=== PATIENT | male | born 1965 | race African-American/Black ===

== ENCOUNTER 2020-03-04 12:17 | Inpatient (IN) | payer OTHER ==
[~2020-03-04] VITALS: Ht 188 cm; Wt 95.3 kg
[~2020-03-04 12:17] MED LIST: LORAZEPAM 1 MG TABLET FOR AGITATION PO PRN
--- NOTE | 2020-03-04 14:40 | NUR ---
LIGHTING FIXTURE INSTALLER NOTE: 54 YEAR OLD MALE PATIENT OF DR. MCDONALD'Chauncey ADMITTED FROM HOME FOR MEDICATION TRIAL STUDY. PT ADMITTED ON A VOLUNTARY STATUS WITH A HISTORY OF SCHIZOPHRENIA. PT DENIES MEDICAL HISTORY BUT IS ON DAILY AMLODIPINE. PT WITH HISTORY OF SCHIZOPHRENIA WITH COMPLIANCE ON RISPERDAL, REMERON AND BENADRY. PT DENIES CURRENT SI/HI/AH/VH. DENIES H/O IN PT PSY TX AND PREV SA. REPORTS RECENT INCREASED DEPRESSION RELATED TO RECENT EVENTS IN THE MEDIA. PT A+OX3, VSS, AFEBRILE. SPEECH CLEAR, PRESSURED, HYPERVERBAL. GOOD SHORT AND RESIDENTIAL MEMORY. DENIES PAIN. SKIN CLEAR AND INTACT. PATIENT ORIENTED TO THE UNIT, PATIENT HANDBOOK ALONG WITH PATIENT RIGHTS AND GUIDE TO PRESCRIPTIONS PROVIDED.
[2020-03-04] MEDS ORDERED: ACETAMINOPHEN ES 500 MG TABLET PO PRN (15:00)
[2020-03-04] MEDS ORDERED: IBUPROFEN 200 MG TABLET PO PRN (15:00)
[2020-03-04] MEDS ORDERED: MAG HYDROX/AL HYDROX/SIMETH 30 ML UDC PO PRN (15:00)
[2020-03-04] MEDS ORDERED: LORAZEPAM 1 MG TABLET FOR AGITATION PO PRN (15:00)
[2020-03-04] MEDS ORDERED: MAGNESIUM HYDROXIDE 30 ML UDC PO PRN (15:00)
[2020-03-04] MEDS ORDERED: BENZTROPINE MESYLATE (1 MG) 1 MG TABLET PO PRN (15:30)
[2020-03-04] MEDS ORDERED: ZOLPIDEM TARTRATE 10 MG TABLET PO PRN (15:30)
[2020-03-04] MEDS ORDERED: MISCELLANEOUS MED 1 EA EA PO SCH (15:30)
[2020-03-04] MEDS ORDERED: LORAZEPAM 1 MG TABLET PO PRN (15:30)
[2020-03-04 15:51] VITALS: BP 158/77
[2020-03-04 16:00] VITALS: BP 158/77
[2020-03-04] MEDS ORDERED: RISP1TAB7 PO (16:10)
[2020-03-04] MEDS ORDERED: DIPH50CA37 PO (16:10)
[2020-03-04] MEDS ORDERED: MIRT15TA PO (16:10)
[2020-03-04 20:03] VITALS: BP 148/84
[2020-03-04] MEDS: RISPERDAL 0.5 MG PO SCH (22:07)
[2020-03-05] MEDS: AMLODIPINE 5 MG PO SCH (08:11)
--- NOTE | 2020-03-05 09:16 | NUR ---
RN-CO:PT IS A CLINICAL TRIAL PATIENT. NOTED HE IS QUITE DEMANDING AND ENTITLED. EASILY IRRITATED BUT HE DENIED FEELING OF DEPRESSION AND HALLUCINATIONS. HIS SPEECH IS PRESSURED TOO.
[2020-03-05 09:22] VITALS: BP 108/71
[2020-03-05 16:00] VITALS: BP 152/92
[2020-03-05 20:23] VITALS: BP 159/83
[2020-03-05] MEDS: RISPERDAL 0.5 MG PO SCH (21:10)
[2020-03-06 08:00] VITALS: BP 155/73
[2020-03-06] MEDS: AMLODIPINE 5 MG PO SCH (08:44)
[2020-03-06 16:00] VITALS: BP 127/59
--- NOTE | 2020-03-06 17:55 | NUR ---
PT WAS PLEASANT AND COMPLIANT WITH MEDS MOST OF THE SHIFT.SMOKES OFTEN. C/O NOT MAKING BM FOR 4 DAYS.PT DRANK 6 CUPS OF PRUNE JUICE AND 2 CUPS OF WARM TEA. HESITANT TO TAKE MILK OF MAGNESIA PRN AND TOOK MAALOX INSTEAD. ENCOURAGED TO AMBULATE OFTEN AND INCREASE INTAKE OF FLUIDS. WILL MONITOR PT. PT AMBULATES ALONG THE HALLWAY OFTEN AND GOES OUT TO SMOKE WELL. PT SLEEPING AT THIS TIME BUT AROUSABLE.
--- NOTE | 2020-03-06 19:30 | NUR ---
GPS RN NOTE, RECEIVED PATIENT AWAKE AND IN BED, PATIENT DENIES PAIN AT THIS TIME. PATIENT BREATHING IS UNLABORED WITH EQUAL RISE AND FALL OF THE CHEST. PATIENT IS ALERT AND ORIENTED X 4 ON ROOM AIR WITH A SPOO2 95%. PATIENT IS COMPLAINT WITH MEDICATION, BRIGHT, POLITE, HYPERVERBAL AT TIMES, NEEDY, AND COOPERATIVE. PATIENT IS DENIES AH AND VH AT THIS TIME. PATIENT DENIES SUICIDE AND HOMICIDAL IDEATIONS AT THIS TIME. PATIENT IS SMOKING OFTEN. PATIENT HAS NO NEEDS AT THIS TIME. PATIENT EDUCATED ON THE USE OF THE CALL ZAVALA. PATIENT BED SIDE RAILS UP X 2 FOR SAFETY. PATIENT BED IS LOCKED AND LOW WILL CONTINUE TO MONITOR AND MAINTAIN SAFETY Q15 MIN WITH THE HELP OF STAFF.
[2020-03-06 20:31] VITALS: BP 128/57
[2020-03-06] MEDS: RISPERDAL 0.5 MG PO SCH (21:44)
[2020-03-06] MEDS: ZOLPIDEM TARTRATE 10 MG TABLET PO PRN (21:49)
--- NOTE | 2020-03-06 21:50 | NUR ---
GPS RN NOTE, PATIENT HAS A COMPLAINT OF NOT BEING ABLE TO SLEEP AND IS REQUESTING AMBIEN AT THIS TIME. PATIENT VITAL SIGNS ARE STABLE. GAVE AMBIEN 10MG PO HS ORDERED. WILL REASSESS FOR INSOMNIA AND I WILL CONTINUE TO MONITOR THIS PATIENT WITH THE HELP OF STAFF.
[2020-03-07 08:00] VITALS: BP 142/73
[2020-03-07] MEDS: AMLODIPINE 5 MG PO SCH (08:33)
[2020-03-07 16:00] VITALS: BP 139/64
[2020-03-07 20:00] VITALS: BP 146/79
[2020-03-07] MEDS: RISPERDAL 0.5 MG PO SCH (21:14)
[2020-03-07 21:45] VITALS: BP 139/72
[2020-03-07] MEDS: ZOLPIDEM TARTRATE 10 MG TABLET PO PRN (22:23)
--- NOTE | 2020-03-07 22:24 | NUR ---
GPS RN NOTE: INSOMNIA PATIENT REQUESTED TO GET SLEEPING MEDICINE FOR SLEEPLESSNESS. PRN AMBIEN 10 MG PO GIVEN ORDERED BY MD. WILL CONTINUE TO MONITOR FOR ANY CHANGES.
[2020-03-08 08:00] VITALS: BP 134/67
[2020-03-08] MEDS: AMLODIPINE 5 MG PO SCH (08:03)
[2020-03-08 16:00] VITALS: BP 117/66
--- NOTE | 2020-03-08 16:45 | NUR ---
RN-CO:Noted he is mumbling and talk fast but not looking at the nurse's eye.
--- NOTE | 2020-03-08 20:15 | NUR ---
GPS-RN NOTE: RECEIVED PATIENT LYING IN BED, A/OX4, IN NO ACUTE DISTRESS NOTED.COOPERATIVE WITH TREATMENT AND MEDS, PT SOCIALIZING WITH ANOTHER PATIENT, STILL FEELS DEPRESSED, NO VERBALIZATION OF THOUGHTS AND FEELINGS. DENIES SI/HI OR AVH AT THIS TIME. ENCOURAGED TO VERBALIZE AT 2-3 COPING SKILLS.SAFETY PRECAUTIONS IMPLEMENTED. WILL CONTINUE TO MONITOR Q15MIN ROUNDS FOR SAFETY AND BEHAVIOR.
[2020-03-08 20:33] VITALS: BP 146/76
[2020-03-08] MEDS: ZOLPIDEM TARTRATE 10 MG TABLET PO PRN (21:52)
--- NOTE | 2020-03-08 21:52 | NUR ---
GPS RN NOTE: INSOMNIA PT. C/O INABILITY TO SLEEP. ADMINISTERED AMBIEN 10MG PO PRN ORDERED. WILL CONTINUE TO MONITOR.
[2020-03-09 08:00] VITALS: BP 147/70
[2020-03-09] MEDS: AMLODIPINE 5 MG PO SCH (09:40)
[2020-03-09 16:00] VITALS: BP 133/69
--- NOTE | 2020-03-09 19:20 | NUR ---
GPS RN NOTE: OPENING RECEIVED PATIENT IN BED AWAKE TALKING ON THE PHONE. PT IS A/OX4, IN NO ACUTE DISTRESS NOTED. BREATHING EVEN AND UNLABORED. NO PAIN AT THIS TIME. PT COOPERATIVE WITH PLAN OF CARE. PT SOCIALIZING WITH ANOTHER PATIENT, PT IS DEPRESSED, RESERVED, GUARDED, ENCOURAGE VERBALIZATION OF THOUGHTS AND FEELINGS. DENIES SI/HI OR AVH AT THIS TIME. .SAFETY PRECAUTIONS IMPLEMENTED. WILL CONTINUE TO MONITOR Q15MIN ROUNDS FOR SAFETY AND BEHAVIOR.
[2020-03-09 20:18] VITALS: BP 151/75
[2020-03-09] MEDS: ZOLPIDEM TARTRATE 10 MG TABLET PO PRN (21:29)
--- NOTE | 2020-03-09 21:31 | NUR ---
GPS RN NOTES: INSOMNIA PT C/O UNABLE TO SLEEP. PT ASKED FOR SLEEPING MEDICATION. NO S/S OF SOB. NO S/S OF RESP DISTRESS. BREATHING EVEN AND UNLABORED. OFFERED AMBIEN 10MG PO PRN ORDERED. PT AGREED AND TOLERATED MEDICATION WELL. CONTINUE TO MONITOR
[2020-03-10 08:00] VITALS: BP 136/57
[2020-03-10] MEDS: AMLODIPINE 5 MG PO SCH ×2 (08:18→08:22)
--- NOTE | 2020-03-10 09:00 | NUR ---
RN NOTE:Patient alert ,verbally responsive ,poor insight ,poor insight ,easily irritable and anxius ,no interaction with peers ,stay in his room ,mood depressed isolative and withdrawn ,will continue to monitor for safety q15 minutes .
[2020-03-10 16:00] VITALS: BP 140/73
[2020-03-10] MEDS: ZOLPIDEM TARTRATE 10 MG TABLET PO PRN (21:11)
[2020-03-11] MEDS: AMLODIPINE 5 MG PO SCH (08:27)
--- NOTE | 2020-03-11 10:01 | NUR ---
RN-CO:PATIENT STATED " I AM BORED, I WANT TO SEE MY FAMILY AND THE PEOPLE WHO TRULY LOVES ME. NOT LIKE HERE SOME PEOPLE DON'T LIKE ME." I TOLD HIM THAT HE CAN VENTILATE HIS FEELINGS TO HIS RN OR TO THE STAFF HE TRUST. HE LOOKS SENTIMENTAL THIS MORNING. REASSUANCE WAS GIVEN TO HIM.
[2020-03-11] MEDS ORDERED: LORAZEPAM 1 MG TABLET FOR AGITATION PO PRN (12:00)
[2020-03-11] MEDS: INVESTIGATIONAL MED RGH-MD-24 1 CAP PO SCH (17:03)
[2020-03-11 20:05] VITALS: BP 144/76
[2020-03-11] MEDS: ZOLPIDEM TARTRATE 10 MG TABLET PO PRN (21:58)
--- NOTE | 2020-03-11 21:58 | NUR ---
GPS RN NOTE: INSOMNIA PT. C/O INABILITY TO SLEEP. ADMINISTERED AMBIEN 10MG PO PRN ORDERED. WILL CONTINUE TO MONITOR.
[2020-03-12 08:00] VITALS: BP 145/71
[2020-03-12] MEDS: AMLODIPINE 5 MG PO SCH (08:13)
[2020-03-12 16:00] VITALS: BP 144/73
[2020-03-12] MEDS: INVESTIGATIONAL MED RGH-MD-24 1 CAP PO SCH (16:54)
[2020-03-12] MEDS: ZOLPIDEM TARTRATE 10 MG TABLET PO PRN (21:16)
--- NOTE | 2020-03-12 22:01 | NUR ---
GPS/OPENING PATIENT WENT OUT TO SMOKE AT 1949. AND IS REQUESTING AMBIEN TO BE TAKEN EARLIER. LOOKS COMFOFTABLE IN BED. STATES HE JUST WANTS TO GO HOME TO HIS FAMILY AND BEGIN TO TRAIN SON AT THE GYM. LOOKS RESTED IN BED ON THE PHONE WITH SOMEONE. NO SIGNS OF DISTRESS/ANXIETY. WILL CONTINUE TO MONITOR.
[2020-03-13 08:00] VITALS: BP 144/69
[2020-03-13] MEDS: AMLODIPINE 5 MG PO SCH (08:22)
--- NOTE | 2020-03-13 09:15 | NUR ---
RN-CO:PATIENT IS CALM AND COOPERATIVE TO CARE. TOOK HIS AM MEDS. FOCUS ON GOING IN AND OUT OF THE UNIT. INTERACTS APPROPRIATELY TO STAFF.
[2020-03-13 16:00] VITALS: BP 144/65
[2020-03-13] MEDS: INVESTIGATIONAL MED RGH-MD-24 1 CAP PO SCH (16:43)
[2020-03-13 20:00] VITALS: BP 139/72
--- NOTE | 2020-03-13 20:00 | NUR ---
GPS/RN OPENING NOTES RECEIVED PATIENT ALERT, ORIENTED, ABLE TO VERBALIZE NEEDS, CLINICAL TRIAL AND REPORTED WOULD LIKE TO TAKE HIS SLEEPING MEDICATION AFTER HE GET BACK FROM SMOKE BREAK. RECEIVED ENDORSEMENT FROM AM RN FOR JAS.
[2020-03-13] MEDS: ZOLPIDEM TARTRATE 10 MG TABLET PO PRN (20:41)
[2020-03-14 08:00] VITALS: BP 144/82
[2020-03-14] MEDS: AMLODIPINE 5 MG PO SCH (08:19)
[2020-03-14 16:00] VITALS: BP 143/65
[2020-03-14] MEDS: INVESTIGATIONAL MED RGH-MD-24 1 CAP PO SCH (16:55)
--- NOTE | 2020-03-14 19:15 | NUR ---
RN opening notes Received Pt from morning nurse. Pt is clinical trial. Pt is laying in bed comfortably. Pt is alert and orientedX4, calm and cooperative. Respiration is normal. No SOB. No S/S of distress noted. Pt denies SI/HI at this time. Reality orientation provided. Pt has no needs at this time. Will continue to monitor Q 15 mins check for safety and behavior.
[2020-03-14 20:00] VITALS: BP 149/76
[2020-03-14 20:56] VITALS: BP 149/76
[2020-03-14] MEDS: ZOLPIDEM TARTRATE 10 MG TABLET PO PRN (21:50)
--- NOTE | 2020-03-14 21:50 | NUR ---
GPS RN notes: Insomnia Pt's complaining unable to sleep and requesting a sleeping meds. Administered Ambien 10 mg/po as ordered for sleeping. Safety precautions is maintained. Will continue to monitor.
[2020-03-15 08:00] VITALS: BP 134/68
[2020-03-15] MEDS: AMLODIPINE 5 MG PO SCH (08:13)
[2020-03-15 16:00] VITALS: BP 142/70
[2020-03-15] MEDS: INVESTIGATIONAL MED RGH-MD-24 1 CAP PO SCH (16:38)
[2020-03-15 20:00] VITALS: BP 145/67
[2020-03-15 20:44] VITALS: BP 145/67
[2020-03-16 08:00] VITALS: BP 150/71
[2020-03-16] MEDS: AMLODIPINE 5 MG PO SCH (09:07)
[2020-03-16 16:00] VITALS: BP 149/77
[2020-03-16] MEDS: INVESTIGATIONAL MED RGH-MD-24 1 CAP PO SCH (16:43)
[2020-03-16 20:22] VITALS: BP 150/71
[2020-03-16] MEDS: ZOLPIDEM TARTRATE 10 MG TABLET PO PRN (20:48)
[2020-03-17 08:00] VITALS: BP 148/85
[2020-03-17] MEDS: AMLODIPINE 5 MG PO SCH (08:57)
[2020-03-17 16:00] VITALS: BP 143/70
[2020-03-17] MEDS: INVESTIGATIONAL MED RGH-MD-24 1 CAP PO SCH ×2 (16:42→17:00)
--- NOTE | 2020-03-17 20:14 | NUR ---
GPS RN NOTES: OPENING Received Pt in the room. Pt is clinical trial. Pt is laying in bed comfortably. Pt is alert and oriented X4, calm and cooperative. Respiration is normal. No SOB. No S/S of resp distress noted. Pt denies SI/HI at this time. Reality orientation provided. Pt has no needs at this time. Safety precautions is maintained. Will continue to monitor Q 15 mins check for safety and behavior.
[2020-03-17 20:18] VITALS: BP 143/67
[2020-03-18 08:00] VITALS: BP 145/68
--- NOTE | 2020-03-18 09:00 | NUR ---
RECEIVED PT AMBULATING IN HALLWAY. NO ACUTE DISTRESS NOTED. PT COMPLIANT WITH MEDICATION ADMINISTRATION AND PLAN OF CARE. PT DENIES CURRENT SI/HI. NO ADVERSE SIDE EFFECTS TO MEDICATIONS NOTED. PT AMBULATORY AND VISIBLE ON THE UNIT. NO DEPRESSION ANXIETY NOTED. PT DENIES AH/VH/TH AT PRESENT TIME. PT STABLE FOR DISHCARGE HOME WITH F/U WITH DR. MCDONALD
[2020-03-18] MEDS: AMLODIPINE 5 MG PO SCH (09:07)
--- NOTE | 2020-03-18 10:10 | NUR ---
ELL TEACHER NOTE: 54 YEAR OLD MALE DISCHARGED HOME IN STABLE CONDITION. COMPLIANT WITH MEDICATIOONS, COOPERATIVE WITH TREATMENT AND DRUG STUDY PLAN. PATIENT DENIES SI/HI AND INSTRUCTED TO GO TO THE CLOSEST ER IF DEVELOPING SI/HI. BEHAVIOR IMPROVED, PSYCHIATRIC AND DRUG STUDY TREATMENT PLANS MED, MEDICATL TREATMENT PLANS DEFERRED FOR CONTINUAL MONITORING. EDUCATED PT ABOUT AFTER CARE PLAN AND COPY PROVIDED. RETURNED PERSONAL BELONGINGS TO PATIENT. MEDICATION RECONCILED WITH DR. MCDONALD. PATIENT SIGNED DISCHARGE PAPER WORK. SKIN CLEAR ON ADMIT AND DISCHARGE. PT LEF THE UNIT AT 1010 VIA AMULATION IN STABLE CONDITION. PATIENT ID BAND REMOVED
== END 2020-03-18 10:15 | disposition home or self-care (01) | DRG 951 ==
LOC: GPS 14:31 → MEDOV2 15:40
PROVIDERS: ADMIT Psychiatry & Neurology Psychiatry; ATTEND Psychiatry & Neurology Psychiatry
DX: Z00.6 Encounter for examination for normal comparison and control in clinical research program (principal); F20.0 Paranoid schizophrenia; F29 Unspecified psychosis not due to a substance or known physiological condition; F41.9 Anxiety disorder, unspecified; F17.210 Nicotine dependence, cigarettes, uncomplicated; G47.00 Insomnia, unspecified; Z81.8 Family history of other mental and behavioral disorders; Z79.899 Other long term (current) drug therapy
CPT/HCPCS: G0378

== ENCOUNTER 2021-05-20 09:54 | Inpatient (IN) | payer OTHER ==
[~2021-05-20] VITALS: Ht 188 cm; Wt 95.3 kg
[~2021-05-20 09:54] MED LIST changes: +DIPH50CA37 PO; -LORAZEPAM 1 MG TABLET FOR AGITATION PO PRN; +MIRT-121 PO; +RISP1TAB7 PO
[2021-05-20] MEDS ORDERED: LORAZEPAM 1 MG TABLET FOR AGITATION/ANXIETY PO PRN (14:30)
[2021-05-20] MEDS ORDERED: ACETAMINOPHEN ES 500 MG TABLET PO PRN (14:30)
[2021-05-20] MEDS ORDERED: IBUPROFEN 200 MG TABLET PO PRN (14:30)
--- NOTE | 2021-05-20 14:40 | NUR ---
GPS RN NOTE RECEIVED PATIENT FROM DR MCDONALD'S OFFICE A/O X 4, ABLE TO MAKE NEEDS KNOWN. A CLINICAL TRIAL PATIENT, UNDER CARE OF DR. MCDONALD, MARY [place]. DENIES PAIN. DENIES SI/HI. DENIES ANXIETY OR ANY OTHER BEHAVIOR PROBLEM AT THIS TIME. TOLERATING ROOM AIR WELL WITH NO SOB. DENIES PAIN OR DISCOMFORT AT THIS TIME. AMBULATORY/STEADY. NO IV ACCESS. ORIENTED PATIENT TO THE UNIT & STAFF. SAFETY MEASURES IN PLACE. BED IN LOWEST LOCKED POSITION. SIDE RAILS UPX2, WILL CONTINUE TO MONITOR PATIENT Q 15. Addendum: 05/20/21 at 1648 by FELICIA STOKES RN PT STATES HAVING AUDITORY HALLUCINATIONS THOUGH NOT AT PRESENT. PATIENT CAME FROM DR MCDONALD'S OFFICE WITH ORDERS.
[2021-05-20] MEDS ORDERED: MISCELLANEOUS MED 1 EA EA PO SCH (15:00)
[2021-05-20] MEDS ORDERED: BENZTROPINE MESYLATE (1 MG) 1 MG TABLET PO PRN (15:00)
[2021-05-20] MEDS ORDERED: LORAZEPAM 1 MG TABLET PO PRN (15:00)
[2021-05-20] MEDS ORDERED: ZOLPIDEM TARTRATE 10 MG TABLET PO PRN (15:00)
[2021-05-20 16:00] VITALS: BP 151/90
[2021-05-20 20:03] VITALS: BP 152/89
--- NOTE | 2021-05-20 20:38 | NUR ---
GPS RN NOTES: RECEIVED PATIENT IN ROOM, AWAKE, ALERT AND ORIENTED X3. APPROPRIATE AFFECT. CALM AND COOPERATIVE. REPORTS HE HAS AUDITORY AND VISUAL HALLUCINATIONS SOMETIMES, BUT NONE AT THIS TIME. DENIES SI, DENIES PAIN AT THIS TIME. RESPIRATION EVEN AND UNLABORED WITH EQUAL RISE AND FALL OF THE CHEST, ON ROOM AIR. WILL CONTINUE TO MONITOR Q15 FOR SAFETY, MOOD AND BEHAVIOR.
[2021-05-20] MEDS: RISPERIDONE 1 MG PO SCH (22:06)
--- NOTE | 2021-05-21 07:00 | NUR ---
GPS RN CLOSING NOTES: PATIENT IS AWAKE, A/O X3. PATIENT SLEPT 8HRS THIS SHIFT. PATIENT WENT OUT OF THE UNIT TWICE FOR SMOKE BREAKS THIS SHIFT. PATIENT HAS NO S/S OF DISTRESS. RESPIRATION EVEN AND UNLABORED WITH EQUAL RISE AND FALL OF THE CHEST, ON ROOM AIR. ALL PATIENT CARE NEEDS HAVE BEEN MET ANTICIPATED. WILL CONTINUE TO MONITOR AND ENDORSE TO AM SHIFT.
[2021-05-21 08:00] VITALS: BP 138/68
--- NOTE | 2021-05-21 09:22 | NUR ---
Pt. is visible in the unit, seen in the dining room watching tv. Pt. 100% for breakfast and went for smoking. Needs attended and will conitnue to monitor for safety.
[2021-05-21 16:00] VITALS: BP 120/78
--- NOTE | 2021-05-21 19:30 | NUR ---
GPS RN NOTE, RECEIVED PATIENT AWAKE AND IN BED, NO S/S OR COMPLAINTS OF PAIN AT THIS TIME. PATIENT IS DISPLAYING NO S/S OF APPARENT DISTRESS AT THIS TIME. PATIENT BREATHING IS UNLABORED WITH EQUAL RISE AND FALL OF THE CHEST. PATIENT IS ALERT AND ORIENTED X 3 ON ROOM AIR WITH A SPO2 97%. PATIENT IS COMPLIANT WITH MEDICATIONS, CALM AND COOPERATIVE. PATIENT DENIES SUICIDAL AND HOMICIDAL IDEATIONS AT TIME. PATIENT EDUCATED ON THE USE OF THE CALL ZAVALA. PATIENT BED SIDE RAILS UP X 2 FOR SAFETY. PATIENT BED IS LOCKED, LOW, WITH BED ALARM ON. WILL CONTINUE TO MONITOR THIS PATIENT Q15 MINUTES WITH THE HELP OF STAFF TO MAINTAIN SAFETY.
[2021-05-21 20:40] VITALS: BP 124/71
[2021-05-21] MEDS: RISPERIDONE 1 MG PO SCH (21:26)
[2021-05-21] MEDS: ZOLPIDEM TARTRATE 10 MG TABLET PO PRN (21:27)
--- NOTE | 2021-05-21 21:27 | NUR ---
GPS RN NOTE, PATIENT HAS A COMPLAINT OF NOT BEING ABLE TO SLEEP AND IS REQUESTING AMBIEN AT THIS TIME. PATIENT VITAL SIGNS ARE STABLE. GAVE AMBIEN 10MG PO HS PRN ORDERED. WILL REASSESS FOR INSOMNIA AND I WILL CONTINUE TO MONITOR THIS PATIENT WITH THE HELP OF STAFF.
[2021-05-22 08:00] VITALS: BP 138/68
--- NOTE | 2021-05-22 09:45 | NUR ---
Received pt. awake in bed, responsive to staffs, no distress and no agitation noted. Ate 100% for breakfast, pt. went for smoke break and needs attended and will continue to monitor for safety.
[2021-05-22 16:00] VITALS: BP 143/72
--- NOTE | 2021-05-22 19:30 | NUR ---
GPS RN NOTE, RECEIVED PATIENT AWAKE AND IN BED, NO S/S OR COMPLAINTS OF PAIN AT THIS TIME. PATIENT IS DISPLAYING NO S/S OF APPARENT DISTRESS AT THIS TIME. PATIENT BREATHING IS UNLABORED WITH EQUAL RISE AND FALL OF THE CHEST. PATIENT IS ALERT AND ORIENTED X 3 ON ROOM AIR WITH A SPO2 98%. PATIENT IS COMPLIANT WITH MEDICATIONS, CALM, AND COOPERATIVE. PATIENT DENIES SUICIDAL AND HOMICIDAL IDEATIONS AT TIME. PATIENT EDUCATED ON THE USE OF THE CALL ZAVALA. PATIENT BED SIDE RAILS UP X 2 FOR SAFETY. PATIENT BED IS LOCKED, LOW, WITH BED ALARM ON. WILL CONTINUE TO MONITOR THIS PATIENT Q15 MINUTES WITH THE HELP OF STAFF TO MAINTAIN SAFETY.
[2021-05-22] MEDS: RISPERIDONE 1 MG PO SCH (21:33)
[2021-05-22 21:34] VITALS: BP 154/75
[2021-05-22] MEDS: ZOLPIDEM TARTRATE 10 MG TABLET PO PRN (21:34)
[2021-05-23 08:00] VITALS: BP 156/74
--- NOTE | 2021-05-23 09:08 | NUR ---
Pt. ate 100% for breakfast. Pt. interacts minimally to peers and went for smoking. Needs attended, no distress and no agitation noted. Will continue to monitor for safety.
[2021-05-23 16:00] VITALS: BP 154/72
[2021-05-23 20:08] VITALS: BP 153/76
[2021-05-23] MEDS: RISPERIDONE 1 MG PO SCH (21:22)
[2021-05-23] MEDS: ZOLPIDEM TARTRATE 10 MG TABLET PO PRN (21:22)
[2021-05-24 08:00] VITALS: BP 140/70
--- NOTE | 2021-05-24 10:06 | NUR ---
RN-CO: PT IS CLAIMING HE HAS AUDITORY AND VISUAL HALLUCINATIONS. HE IS GUARDED WHEN ASKED. HOWEVER HE DENIES DISCOMDORTS. HE IS VISIBLE IN THE UNIT. I WILL CONTINUE TO MONITOR AND NOTIFY .
[2021-05-24 16:00] VITALS: BP 149/53
[2021-05-24 20:00] VITALS: BP 137/67
--- NOTE | 2021-05-24 20:54 | NUR ---
GPS RN NOTES: RECEIVED PATIENT LAYING ON BED, AWAKE, ALERT AND ORIENTED X3. APPROPRIATE AFFECT, CALM AND COOPERATIVE, PASSIVE. DENIES SI/HI AT THIS TIME. DENIES PAIN. NO S/S OF DISTRESS, RESPIRATION EVEN AND UNLABORED WITH EQUAL RISE AND FALL OF THE CHEST, ON ROOM AIR. BED IN LOWEST POSITION AND LOCKED, CALL ZAVALA WITHIN REACH. WILL CONTINUE TO MONITOR Q15 FOR SAFETY, MOOD AND BEHAVIOR.
[2021-05-24] MEDS: RISPERIDONE 1 MG PO SCH (21:27)
[2021-05-24] MEDS: ZOLPIDEM TARTRATE 10 MG TABLET PO PRN (22:00)
--- NOTE | 2021-05-24 22:01 | NUR ---
GPS RN NOTES: PATIENT REQUESTED SLEEP MEDICATION. AMBIEN 10MG GIVEN PO PRN ORDERED AT 2200. WILL CONTINUE TO MONITOR.
--- NOTE | 2021-05-25 06:46 | NUR ---
GPS RN CLOSING NOTES: PATIENT IS AWAKE, A/O X3. PATIENT SLEPT 6HRS THIS SHIFT. PATIENT WENT OUT OF THE UNIT 4 TIMES FOR SMOKE BREAKS THIS SHIFT. NO BEHAVIORAL ISSUES THIS SHIFT. PATIENT HAS NO S/S OF DISTRESS. RESPIRATION EVEN AND UNLABORED WITH EQUAL RISE AND FALL OF THE CHEST, ON ROOM AIR. ALL PATIENT CARE NEEDS HAVE BEEN MET ANTICIPATED. WILL CONTINUE TO MONITOR AND ENDORSE TO AM SHIFT.
[2021-05-25 08:19] VITALS: BP 139/74
[2021-05-25 16:24] VITALS: BP 135/73
[2021-05-25 20:00] VITALS: BP 140/70
--- NOTE | 2021-05-25 20:13 | NUR ---
GPS-RN NOTES: RECEIVED PATIENT IN HIS ROOM, AWAKE, ALERT AND ORIENTED X3. NO S/SX OF ACUTE RESPIRATORY DISTRESS NOTED. PATIENT IS COOPERATIVE AND PLEASANT. PT DENIES ANY SI/HI AT THIS TIME. PT. DENIES AUDITORY/VISUAL HALLUCINATIONS. NO C/O PAIN OR DISCOMFORT AT THIS TIME. SAFETY PRECAUTIONS IN PLACE. WILL CONTINUE TO MONITOR Q15MIN ROUNDS FOR SAFETY AND BEHAVIOR.
[2021-05-25] MEDS: RISPERIDONE 1 MG PO SCH (21:47)
[2021-05-26 08:00] VITALS: BP 154/75
--- NOTE | 2021-05-26 09:31 | NUR ---
RN NOTE: RECEIVED PT LYING IN BED. NO ACUTE DISTRESS NOTED. VSS, AFEBRILE NO SOB NOTED. PT IS ISOLATIVE AND WITHDRAWN. DENIES SI/HI. REPORTS CONTINUED AUDITORY HALLUCINATIONS. NON-COMMAND. AMBULATORY AND CONTINENT. VISIBLE AT TIMES ON UNIT. COMPLIANT WITH MEDICATION ADMINISTRATION AND PLAN OF CARE. NO S/SX OF ADVERSE MEDICATION REACTION NOTED. WILL CONT TO MONITOR FOR SAFETY AND BEHAIOR PER PROTOCOL
[2021-05-26] MEDS ORDERED: ZOLPIDEM TARTRATE 10 MG TABLET PO PRN (13:00)
[2021-05-26] MEDS ORDERED: LORAZEPAM 1 MG TABLET FOR AGITATION/ANXIETY PO PRN (13:00)
[2021-05-26 16:00] VITALS: BP 144/74
--- NOTE | 2021-05-26 20:01 | NUR ---
GPS-RN NOTES: RECEIVED PATIENT IN HIS ROOM, AWAKE, ALERT AND ORIENTED X3. NO S/SX OF ACUTE RESPIRATORY DISTRESS NOTED. PATIENT IS COOPERATIVE AND PLEASANT. PATIENT DENIES SI/HI/AVH AT THIS TIME. NO C/O PAIN OR DISCOMFORT AT THIS TIME. SAFETY PRECAUTIONS IN PLACE. WILL CONTINUE TO MONITOR Q15MIN ROUNDS FOR SAFETY AND BEHAVIOR.
[2021-05-26] MEDS: ZOLPIDEM TARTRATE 10 MG TABLET PO PRN (22:32)
--- NOTE | 2021-05-26 22:32 | NUR ---
GPS-RN NOTES: INSOMNIA; PATIENT C/O INABILITY TO SLEEP. PRN AMBIEN 10MG PO ORDERED. WILL CONTINUE TO MONITOR.
[2021-05-27 08:00] VITALS: BP 132/86
[2021-05-27 16:00] VITALS: BP 140/73
--- NOTE | 2021-05-27 21:00 | NUR ---
RN NOTE PT IN HIS ROOM. ALERT AND ORIENTED X4. NOT IN ANY DISTRESS. DENIES ANY PAIN, DENIES ANY KIND OF HALLUCINATIONS AT THIS TIME. WILL CONTINUE TO MONITOR.
[2021-05-27 21:32] VITALS: BP 137/66
[2021-05-27] MEDS: ZOLPIDEM TARTRATE 10 MG TABLET PO PRN (21:35)
--- NOTE | 2021-05-27 21:35 | NUR ---
RN NOTE PT REQUESTED FOR SLEEPING MEDICATION, AMBIEN PRN GIVEN ORDERED. WILL CONTINUE TO MONITOR.
[2021-05-28 08:00] VITALS: BP 134/77
--- NOTE | 2021-05-28 09:14 | NUR ---
Received pt. in the dining room watching tv, no distress and no agitation noted.. Pt. ate 100%% for breakfast, pt. went for smoking. Needs attended and will continue to monitor for safety.
[2021-05-28 16:00] VITALS: BP 137/70
--- NOTE | 2021-05-28 19:50 | NUR ---
RN OPENING NOTE: RECEIVED PATIENT IN HIS ROOM, AWAKE, ALERT AND ORIENTED X3. NO S/SX OF ACUTE RESPIRATORY DISTRESS NOTED. PATIENT IS COOPERATIVE AND PLEASANT. PT DENIES SI/HI/AVH AT THIS TIME. NO C/O PAIN OR DISCOMFORT AT THIS TIME. SAFETY PRECAUTIONS IN PLACE. WILL CONTINUE TO MONITOR Q15MIN ROUNDS FOR SAFETY AND BEHAVIOR.
[2021-05-28 20:00] VITALS: BP 150/70
[2021-05-28] MEDS: ZOLPIDEM TARTRATE 10 MG TABLET PO PRN (21:20)
--- NOTE | 2021-05-28 21:21 | NUR ---
RN NOTE: INSOMNIA PATIENT VERBALIZED THAT HE IS UNABLE TO SLEEP & REQUESTED TO TAKE SLEEPING MEDICINE AT THIS TIME. PRN AMBIEN 10 MG PO ADMINISTERED.
--- NOTE | 2021-05-28 21:33 | NUR ---
RN NOTE PATIENT WENT TO SMOKE BREAK.
--- NOTE | 2021-05-29 06:42 | NUR ---
GPS RN CLOSING NOTE: PATIENT IS AWAKE, A/O X3. PATIENT SLEPT WELL AT NIGHT. PATIENT WENT OUT OF THE UNIT 3 TIMES FOR SMOKE BREAKS THIS SHIFT. NO BEHAVIORAL ISSUES THIS SHIFT. PATIENT HAS NO S/S OF DISTRESS. RESPIRATION EVEN AND UNLABORED WITH EQUAL RISE AND FALL OF THE CHEST, ON ROOM AIR. ALL PATIENT CARE NEEDS HAVE BEEN MET ANTICIPATED. WILL CONTINUE TO MONITOR AND ENDORSE TO AM SHIFT.
[2021-05-29 08:00] VITALS: BP 142/77
[2021-05-29] MEDS ORDERED: ZOLPIDEM TARTRATE 10 MG TABLET PO PRN (13:00)
[2021-05-29 16:00] VITALS: BP 142/67
--- NOTE | 2021-05-29 19:35 | NUR ---
GPS RN NOTE, RECEIVED PATIENT AWAKE AND IN BED, NO S/S OR COMPLAINTS OF PAIN AT THIS TIME. PATIENT IS DISPLAYING NO S/S OF APPARENT DISTRESS AT THIS TIME. PATIENT BREATHING IS UNLABORED WITH EQUAL RISE AND FALL OF THE CHEST. PATIENT IS ALERT AND ORIENTED X 3 ON ROOM AIR WITH A SPO2 98%. PATIENT IS COMPLIANT WITH MEDICATIONS, ENTITLED, CALM, AND COOPERATIVE. PATIENT DENIES SUICIDAL AND HOMICIDAL IDEATIONS AT THIS TIME. PATIENT EDUCATED ON THE USE OF THE CALL ZAVALA. PATIENT BED SIDE RAILS UP X 2 FOR SAFETY. PATIENT BED IS LOCKED, LOW, WITH BED ALARM ON. WILL CONTINUE TO MONITOR THIS PATIENT Q15 MINUTES WITH THE HELP OF STAFF TO MAINTAIN SAFETY.
[2021-05-29 20:38] VITALS: BP 153/76
[2021-05-29] MEDS: ZOLPIDEM TARTRATE 10 MG TABLET PO PRN (21:48)
[2021-05-30 08:00] VITALS: BP 138/72
[2021-05-30] MEDS: INVEST MED Kar XT OR PLACEBO 50/20 MG PO SCH ×2 (09:47→21:09)
[2021-05-30 16:00] VITALS: BP 148/71
[2021-05-30 20:23] VITALS: BP 156/78
--- NOTE | 2021-05-30 20:49 | NUR ---
GPS RN NOTES: RECEIVED PATIENT AWAKE, ALERT AND ORIENTED X3. CALM AND COOPERATIVE, PASSIVE. DENIES SI/HI AT THIS TIME. DENIES PAIN. NO S/S OF DISTRESS, RESPIRATION EVEN AND UNLABORED WITH EQUAL RISE AND FALL OF THE CHEST, ON ROOM AIR WITH SPO2 OF 100%. PATIENT IS ABLE TO MAKE NEEDS KNOWN. PATIENT WAS SEEN INTERACTING WITH ROOMMATE AND STAFF. WILL CONTINUE TO MONITOR Q15 FOR SAFETY, MOOD AND BEHAVIOR.
[2021-05-30] MEDS: ZOLPIDEM TARTRATE 10 MG TABLET PO PRN (21:46)
--- NOTE | 2021-05-30 21:47 | NUR ---
GPS RN NOTES: PATIENT REQUESTED FOR SLEEP MED. AMBIEN 10MG/1TAB GIVEN PO PRN ORDERED AT 2146. WILL CONTINUE TO MONITOR.
--- NOTE | 2021-05-31 07:02 | NUR ---
GPS RN CLOSING NOTES: PATIENT IS AWAKE, A/O X3. PATIENT SLEPT 6HRS THIS SHIFT. PATIENT WENT OUT OF THE UNIT 3 TIMES FOR SMOKE BREAKS THIS SHIFT. NO BEHAVIORAL ISSUES THIS SHIFT. PATIENT HAS NO S/S OF DISTRESS. RESPIRATION EVEN AND UNLABORED WITH EQUAL RISE AND FALL OF THE CHEST, ON ROOM AIR. ALL PATIENT CARE NEEDS HAVE BEEN MET ANTICIPATED. WILL CONTINUE TO MONITOR AND ENDORSE TO AM SHIFT.
[2021-05-31 08:00] VITALS: BP 124/81
[2021-05-31] MEDS: INVEST MED Kar XT OR PLACEBO 50/20 MG PO SCH ×2 (10:08→21:19)
[2021-05-31 16:00] VITALS: BP 145/68
[2021-05-31 20:30] VITALS: BP 154/74
[2021-05-31] MEDS: ZOLPIDEM TARTRATE 10 MG TABLET PO PRN (22:00)
--- NOTE | 2021-05-31 22:01 | NUR ---
GPS RN NOTES: PATIENT REQUESTED FOR SLEEP MEDICATION. AMBIEN 10MG/1TAB GIVEN PO PRN AT 2200. WILL CONTINUE TO MONITOR.
[2021-06-01 08:00] VITALS: BP 144/74
[2021-06-01] MEDS: INVEST MED Kar XT OR PLACEBO 50/20 MG PO SCH ×2 (09:41→21:51)
[2021-06-01 16:00] VITALS: BP 152/81
--- NOTE | 2021-06-01 19:17 | NUR ---
RN NOTE: RECEIVED PATIENT WALKING IN HALLWAY, AWAKE, ALERT AND ORIENTED X3. NO S/SX OF ACUTE RESPIRATORY DISTRESS NOTED. PATIENT IS COOPERATIVE AND PLEASANT. PT DENIES SI/HI/AVH AT THIS TIME. NO C/O PAIN OR DISCOMFORT AT THIS TIME. SAFETY PRECAUTIONS IN PLACE. WILL CONTINUE TO MONITOR Q15MIN ROUNDS FOR SAFETY AND BEHAVIOR.
--- NOTE | 2021-06-01 19:19 | NUR ---
RN NOTE: RECEIVED PATIENT WALKING IN HALLWAY, AWAKE, ALERT AND ORIENTED X3. NO S/SX OF ACUTE RESPIRATORY DISTRESS NOTED. PATIENT IS COOPERATIVE AND PLEASANT. PT DENIES SI/HI/AVH AT THIS TIME. ENCOURAGED OR. TO VERBALIZED ANY CONCERN. SAFETY PRECAUTIONS IN PLACE. WILL CONTINUE TO MONITOR Q15MIN FOR SAFETY AND BEHAVIOR.
[2021-06-01] MEDS: ZOLPIDEM TARTRATE 10 MG TABLET PO PRN (22:26)
--- NOTE | 2021-06-01 22:27 | NUR ---
GPS-RN NOTES: INSOMNIA; PATIENT C/O INABILITY TO SLEEP. PRN AMBIEN 10MG PO ORDERED. WILL CONTINUE TO MONITOR.
--- NOTE | 2021-06-02 06:34 | NUR ---
GPS RN NOTE: PATIENT IS RESTING HIS ROOM. PATIENT SLEPT WELL AT NIGHT. PATIENT WENT OUT OF THE UNIT 2 TIMES FOR SMOKE BREAKS THIS SHIFT. NO BEHAVIORAL ISSUES THIS SHIFT. PATIENT HAS NO S/S OF DISTRESS NOTED. ALL PATIENT CARE NEEDS HAVE BEEN MET ANTICIPATED. WILL CONTINUE TO MONITOR FOR SAFETY AND BEHAVIOR.
[2021-06-02 08:00] VITALS: BP 139/71
[2021-06-02] MEDS: INVEST MED Kar XT OR PLACEBO 50/20 MG PO SCH ×2 (09:46→21:14)
--- NOTE | 2021-06-02 11:22 | NUR ---
RN-CO: PATIENT IS AWAKE, COMPLIANT WITH MEDICATIONS.HE STATED THAT HE STILL HAS AUDITORY HALLUCINATIONS AND VISUAL HALLUCINATIONS TRIGGERED BY LOUD AND CHAOTIC SURROUNDINGS.
[2021-06-02 16:00] VITALS: BP 145/72
[2021-06-02 20:00] VITALS: BP 149/79
--- NOTE | 2021-06-02 20:07 | NUR ---
GPS RN NOTES: RECEIVED PATIENT IN ROOM, AWAKE, ALERT AND ORIENTED X3. APPROPRIATE AFFECT. CALM AND COOPERATIVE, PASSIVE. DENIES SI/HI AT THIS TIME. DENIES PAIN. NO S/S OF DISTRESS, RESPIRATION EVEN AND UNLABORED WITH EQUAL RISE AND FALL OF THE CHEST, ON ROOM AIR WITH SPO2 OF 100%. CALL ZAVALA WITHIN REACH. OFFERED FLUID AND SNACKS TOLERATED. WILL CONTINUE TO MONITOR Q15 FOR SAFETY, MOOD AND BEHAVIOR.
[2021-06-02] MEDS: ZOLPIDEM TARTRATE 10 MG TABLET PO PRN (22:06)
--- NOTE | 2021-06-02 22:07 | NUR ---
GPS RN NOTES: PATIENT REQUESTED FOR SLEEP MED. AMBIEN 10MG/1TAB GIVEN PO PRN ORDERED AT 2206. WILL CONTINUE TO MONITOR.
--- NOTE | 2021-06-03 06:57 | NUR ---
GPS RN CLOSING NOTES: PATIENT IS AWAKE, ALERT AND ORIENTED X4. PATIENT SLEPT 8HRS THIS SHIFT. PATIENT WENT OUT OF THE UNIT 4 TIMES FOR SMOKE BREAKS THIS SHIFT. NO BEHAVIORAL ISSUES THIS SHIFT. PATIENT HAS NO S/S OF DISTRESS. RESPIRATION EVEN AND UNLABORED WITH EQUAL RISE AND FALL OF THE CHEST, ON ROOM AIR. ALL PATIENT CARE NEEDS HAVE BEEN MET ANTICIPATED. WILL CONTINUE TO MONITOR AND ENDORSE TO AM SHIFT.
[2021-06-03 08:00] VITALS: BP 141/74
--- NOTE | 2021-06-03 09:32 | NUR ---
RN-CO:PATIENT IS IN HIS ROOM, HE DENIES PAIN AND DISCOMFORTS. ONCE IN A WHILE HE GOES FOR SMOKE BREAK. HE IS CONSISTENT IN TELLING ME THAT THE AUDITORY HALLUCINATIONS IS ON AND OFF WELL THE VH AND IT IS TRIGGERED BY LOUD ENVIRONMENT.
[2021-06-03] MEDS: INVEST MED Kar XT OR PLACEBO 50/20 MG PO SCH ×2 (09:46→21:45)
[2021-06-03 16:00] VITALS: BP 140/82
--- NOTE | 2021-06-03 19:40 | NUR ---
GPS RN OPENING NOTES: RECEIVED PATIENT IN ROOM, AWAKE, ALERT AND ORIENTED X3. APPROPRIATE AFFECT. CALM AND COOPERATIVE, PASSIVE. TAKES SMOKE BREAKS INTERMITTENTLY. DENIES SI/HI AT THIS TIME. DENIES PAIN. NO S/S OF DISTRESS, RESPIRATION EVEN AND UNLABORED WITH EQUAL RISE AND FALL OF THE CHEST, ON ROOM AIR. STABLE. OFFERED FLUID AND SNACKS TOLERATED. WILL CONTINUE TO MONITOR Q15 FOR SAFETY, MOOD AND BEHAVIOR.
[2021-06-03 20:00] VITALS: BP 145/72
[2021-06-03] MEDS: ZOLPIDEM TARTRATE 10 MG TABLET PO PRN (21:54)
--- NOTE | 2021-06-03 21:55 | NUR ---
RN NOTE: INSOMNIA PATIENT C/O INABILITY TO SLEEP & REQUESTED TO TAKE SLEEPING MEDICINE RIGHT NOW. PRN AMBIEN 10MG PO GIVEN ORDERED. WILL CONTINUE TO MONITOR.
--- NOTE | 2021-06-04 06:49 | NUR ---
RN CLOSING NOTE PATIENT SLEPT WELL AT NIGHT. WENT OUT OF UNIT COUPLE TIMES TO SMOKE. CALM, RELAXED. NO BEHAVIORAL ISSUES NOTED. WILL ENDORSE TO AM RN FOR CONTINUITY OF CARE.
[2021-06-04 08:00] VITALS: BP 148/87
[2021-06-04] MEDS: INVEST MED Kar XT OR PLACEBO 50/20 MG PO SCH ×2 (09:52→22:01)
--- NOTE | 2021-06-04 10:13 | NUR ---
Pt. ate 100% for breakfast, compliant on meds. Pt. went for fresh air break and needs attended.No distress and no agitation noted.
--- NOTE | 2021-06-04 12:45 | NUR ---
RN-NOTES RECEIVED PATIENT AT 1215 NOON IN THE ROOM AWAKE,ALERT X4 ,NO ACUTE DISTRESS NOTED. RECEIVED ORDER FROM THE TUMBLING AND ROLLING SUPERVISOR TO TRANSFER PATIENT TO ROOM [address] MCDONALD MADE AWARE OF THE TRANSFER.EXTRACTOR OPERATOR ACCOMPANIED PATIENT TO MS3 IN STABLE CONDITION A/O X4 AMBULATORY STEADY GAIT WITH ALL BELONGINGS. REPORT WAS GIVEN TO STANTON ( FOREST SCIENCE PROFESSOR).
[2021-06-04 16:00] VITALS: BP 142/76
--- NOTE | 2021-06-04 18:57 | NUR ---
RN CLOSING NOTE PT NOT PRESENT IN ROOM. REPORT TO BE GIVEN TO RODOLFO REYNOLDS FOR JAS. ORDERS AND LABS REVIEWED. TRIAL MED TO BE GIVEN AT 2200.
--- NOTE | 2021-06-04 19:45 | NUR ---
MS RN NOTES/CLINICAL TRIAL IN ROOM A/O X4,CONVERSANT,WELL GROOMED,MED COMPLIANT AMBULATORY.WILL CONTINUE TO MONITOR BEHAVIOR.
[2021-06-04 20:00] VITALS: BP 169/69
--- NOTE | 2021-06-04 22:00 | NUR ---
RN NOTES/CLINICAL TRIAL INVESTIGATIONAL DRUGS GIVEN
[2021-06-04] MEDS: ZOLPIDEM TARTRATE 10 MG TABLET PO PRN (22:12)
--- NOTE | 2021-06-04 22:12 | NUR ---
MS RN NOTES C/O INSOMNIA,AMBIEN 19MG PO GIVEN PER PATIENT REQUEST.
--- NOTE | 2021-06-05 06:38 | NUR ---
MS RN NOTES REMAINS CALM AND COOPERATIVE,SLEPT WELL WITH AMBIEN 10 MG,NO BEHAVIORAL SYMPTOMS DISPLAY ASSOCIATED WITH INVESTIGATIONAL DRUGS.ENDORSED.
--- NOTE | 2021-06-05 07:00 | NUR ---
MS RN OPENING NOTE RECEIVED PATIENT IN ROOM, AWAKE, ALERT AND ORIENTED X3. PATIENT IS ON ROOM AIR WITH NO SIGNS OF DISTRESS. PATIENT IS UNDER CLINICAL TRIAL UNDER DR. MCDONALD. NO UNTOWARD BEHAVIOR NOTED AT THIS TIME. SAFETY MEASURES ENSURED WITH BED LOCKED AND AT LOWEST POSITION. CALL LIGHT AND TABLE WITHI REACH AT ALL TIMES. WILL CONTINUE TO MONITOR PATIENT.
[2021-06-05 08:00] VITALS: BP 157/79
[2021-06-05] MEDS: INVEST MED Kar XT OR PLACEBO 50/20 MG PO SCH ×2 (10:04→21:03)
[2021-06-05 16:00] VITALS: BP 163/73
--- NOTE | 2021-06-05 19:00 | NUR ---
MS RN CLOSING NOTE PATIENT IN ROOM, AWAKE, ALERT AND ORIENTED X3. PATIENT IS ON ROOM AIR WITH NO SIGNS OF DISTRESS. PATIENT IS UNDER CLINICAL TRIAL UNDER DR. MCDONALD. PATIENT DID NOT DEMONSTRATE ANY UNTOWARD BEHAVIOR DURING THE SHIFT. SAFETY MEASURES ENSURED WITH BED LOCKED AND AT LOWEST POSITION. CALL LIGHT AND TABLE WITHI REACH AT ALL TIMES. WILL ENDORSE TO NEXT SHIFT FOR CONTINUITY OF CARE.
[2021-06-05 20:00] VITALS: BP_SYST 147; BP_DIAS 74; BP_DIAS 79
--- NOTE | 2021-06-05 20:00 | NUR ---
RN NOTES PATIENT IN BED, ALERT AND ORIENTED, STABLE ON ROOM AIR, ANSWERS TO QUESTIONS APPROPRIATELY, BEHAVIOR APPROPRIATE, WELL GROOMED. COMPLIANT WITH MEDICATION, NOTHING TO EAT BEFORE MEDICATION ADMINISTRATION.
--- NOTE | 2021-06-06 06:46 | NUR ---
RN NOTES CLINICAL TRIAL, ALERT AND ORIENTED X4, STABLE ON ROOM AIR, NO COMPLAIN OF PAIN, GIVEN INVESTIGATIONAL DRUG 2 CAPSULES ON TIME. STAYED IN ROOM, NO BEHAVIORAL DISTURBANCE THIS SHIFT.
[2021-06-06 08:00] VITALS: BP 137/71
[2021-06-06] MEDS: INVEST MED Kar XT OR PLACEBO 50/20 MG PO SCH ×2 (10:13→22:00)
[2021-06-06 16:00] VITALS: BP 158/71
--- NOTE | 2021-06-06 19:15 | NUR ---
RN OPENING NOTE PATIENT RECEIVED ON HIS BED, WATCHING. PATIENT IS A CLINICAL TRIAL PATIENT. PATIENT IS A.O X 4, PATIENT IS ABLE TO MAKE NEEDS KNOWN. HE IS INDEPENDENT WITH CARE AND AMBULATION. TOLERATES ROOM AIR, BREATHING EVEN AND UNLABORED NOT IN ANY APPARENT DISTRESS. SAFETY MEASURES IN PLACE; BED LOCKED AND IN LOWEST POSITION, CALL LIGHT WITHIN REACH, SIDE RAILS UP. WILL MONITOR PATIENT CLOSELY.
[2021-06-06 20:00] VITALS: BP 146/82
--- NOTE | 2021-06-07 06:53 | NUR ---
RN CLOSING NOTE PATIENT IN BED, AWAKE. CALM AND COOPERATIVE AT THIS TIME. NOT IN ANY APPARENT DISTRESS. PATIENT IS ABLE TO MAKE NEEDS KNOWN. INVESTIGATIONAL DRUGS ADMINISTERED. NO ADVERSE EFFECTS NOTED. SAFETY MEASURES IMPLEMENTED, ALL NEEDS MET AND ATTENDED, ALL ORDERS CARRIED OUT. WILL ENDORSE TO DAY SHIFT NURSE FOR JAS.
--- NOTE | 2021-06-07 07:28 | NUR ---
MS RN OPENING NOTES RECEIVED PATIENT IN HIS BED AWAKE, A/O X4. ABLE TO MAKE NEEDS KNOWN, NO C/O PAIN OR ANY DISCOMFORTS AT THIS TIME. ON ROOM AIR, BREATHING EVEN AND UNLABORED. CALL LIGHT W/IN EASY REACH. WILL CONTINUE TO MONITOR PT.
[2021-06-07 08:34] VITALS: BP 138/88
[2021-06-07] MEDS: INVEST MED Kar XT OR PLACEBO 50/20 MG PO SCH ×2 (11:05→21:59)
[2021-06-07 16:30] VITALS: BP 158/78
[2021-06-07] MEDS: LORAZEPAM 1 MG TABLET FOR AGITATION/ANXIETY PO PRN (16:52)
--- NOTE | 2021-06-07 17:04 | NUR ---
RN NOTES PT VERBALIZED THAT HE'S ANXIOUS AND REQUESTED MEDICATION FOR ANXIETY. PRN ATIVAN 1MG PO GIVEN AT 1652. WILL CONTINUE TO MONITOR PT.
--- NOTE | 2021-06-07 18:41 | NUR ---
RN CLOSING NOTE PATIENT IN HIS ROOM AT THIS TIME. A/O X4. ABLE TO MAKE NEEDS KNOWN. AMBULATORY. INVESTIGATIONAL DRUGS ADMINISTERED, NO ADVERSE EFFECTS NOTED, DENIES SI/HI. ALL NEEDS MET AND ATTENDED WELL. WILL ENDORSE JAS TO SHOEMAKER APPRENTICE NURSE.
[2021-06-07 19:55] VITALS: BP 154/78
--- NOTE | 2021-06-07 19:55 | NUR ---
MS RN OPENING RECEIVED PATIENT IN BED, A/OX4. NO S/S OF APPARENT DISTRESS. NO C/O PAIN. NO IV LINE. SAFETY IN PLACE. WILL CONTINUE TO MONITOR FOR EPS, AKATHISIA, AND PSYCH INSTABILITY.
[2021-06-07 20:00] VITALS: BP 128/76
[2021-06-07] MEDS: ZOLPIDEM TARTRATE 10 MG TABLET PO PRN (22:01)
--- NOTE | 2021-06-07 22:03 | NUR ---
ms rn note patient requestied for ambien. given at this time.
--- NOTE | 2021-06-08 06:30 | NUR ---
RN CLOSING NOTE PT IS AWAKE IN BED. NO C/O PAIN OR SOB. WILL ENDORSE TO ONCOMING NURSE
[2021-06-08] MEDS: LORAZEPAM 1 MG TABLET FOR AGITATION/ANXIETY PO PRN ×2 (07:26→20:03)
--- NOTE | 2021-06-08 07:31 | NUR ---
MS RN OPENING NOTES RECEIVED PATIENT IN HIS BED AWAKE, A/O X4. ABLE TO MAKE NEEDS KNOWN, DENIES SI/HI BUT COMPLAINED THAT HE'S ANXIOUS AND REQUESTED FOR HIS ATIVAN. ATIVAN 1MG PO GIVEN AT 0726. ON ROOM AIR, BREATHING EVEN AND UNLABORED. CALL LIGHT W/IN EASY REACH. WILL CONTINUE TO MONITOR PT.
[2021-06-08 08:00] VITALS: BP 135/76
[2021-06-08] MEDS: INVEST MED Kar XT OR PLACEBO 50/20 MG PO SCH ×2 (10:02→21:54)
--- NOTE | 2021-06-08 18:13 | NUR ---
RN NOTES BLOOD DIEGO CAME TO DRAW BLOOD FOR PT BUT UN-ABLE TO OBTAIN BLOOD. DIEGO STATED THAT SHE WILL ASK ONE OF HER HER COLLEAGUE TO COME AND DRAW BLOOD FROM PT.
--- NOTE | 2021-06-08 18:46 | NUR ---
MS RN CLOSING NOTE PATIENT IN HIS ROOM AT THIS TIME. A/O X4. ABLE TO MAKE NEEDS KNOWN. AMBULATORY. INVESTIGATIONAL DRUGS ADMINISTERED, NO ADVERSE EFFECTS NOTED, DENIES SI/HI. ALL NEEDS MET AND ATTENDED WELL. WILL ENDORSE JAS TO NITRILES LAB TECHNICIAN NURSE.
--- NOTE | 2021-06-08 18:56 | NUR ---
RN NOTES CALLED LAB AND SPOKE TO MARISSA IF THEY WERE ABLE TO DRAW BLOOD FROM PT. SHE STATED THAT PT REFUSED AND WAS TOLD ALSO THAT HE HAS 0 BLOOD DRAW AND PT STATED THAT IT WILL DEPEND ON HIS MOOD IF HE WILL ALLOW THEM TO DRAW BLOOD BY THAT TIME. PT IS OUTSIDE AT THIS TIME. DR MCDONALD MADE AWARE WITH ORDER TO CALL HIM ONCE PT RETURN TO UNIT.
--- NOTE | 2021-06-08 19:53 | NUR ---
RN NOTE PT IS STILL OUT AT THIS TIME. MADE AWARE AND WILL LET HIM KNOW SOON PT COMES BACK.
[2021-06-08 20:00] VITALS: BP 142/78
--- NOTE | 2021-06-08 20:06 | NUR ---
RN NOTE PT BACK IN HIS ROOM, C/O ANXIETY AND REQUESTS FOR MED -GIVEN ATIVAN 1MG PO ORDERED. INFORMED MD PT IS BACK.
--- NOTE | 2021-06-08 21:07 | NUR ---
RN NOTE SAID TO CONT WITH THE BLOOD DRAW @21:30. REMINDED PT ON SCHEDULED BLOOD DRAW, HE VERBALIZED UNDERSTANDING.
--- NOTE | 2021-06-08 21:42 | NUR ---
RN NOTE LAB WAS ABLE TO DRAW BLOOD AT THIS TIME, 2 TUBES DRAWN - ASKED TO CLARIFY WITH MD IF TWO TUBES WILL BE SENT OUT, SINCE THE 6PM DRAW WAS MISSED BECAUSE PT REFUSED. MD SAID TO SEND THE TWO TUBES. LAB INFORMED.
--- NOTE | 2021-06-09 06:55 | NUR ---
RN CLOSING NOTE PT RESTING IN BED, A/OX4, DENIES ANY PAIN OR DISCOMFORT. ON ROOM AIR AND LINDSAY WELL. NO SOB. PT AMBULATES AD LENKA, OCC GOES DOWN TO SMOKE. NO EPISODES OF AKATHISIA/EPS/PSYCH INSTABILITY. REPORTS HE SLEPT WELL DURING THE NIGHT. NO ACUTE DISTRESS. SAFETY MEASURES MAINTAINED, BED IN LOWEST LOCKED POSITION, S/R UPX2, CALL LIGHT WITHIN REACH.
--- NOTE | 2021-06-09 07:30 | NUR ---
MS/RN OPENING NOTES RECEIVED PATIENT ON BED AWAKE ALERT AND ORIENTED X 4. PATIENT IS ON ROOM AIR. PATIENT IN NO APPARENT RESPIRATORY DISTRESS NOTED. NO COMPLAINED OF PAIN NOTED AT THIS TIME. WILL CONTINUE TO MONITOR.
[2021-06-09 08:00] VITALS: BP 160/82
[2021-06-09] MEDS: INVEST MED Kar XT OR PLACEBO 50/20 MG PO SCH ×2 (10:10→22:00)
[2021-06-09 16:00] VITALS: BP 163/82
--- NOTE | 2021-06-09 18:52 | NUR ---
MS/RN CLOSING NOTE PATIENT IS ON BED AT THIS TIME. AWAKE ALERT AND ORIENTED X4. PATIENT IS ON ROOM AIR. PATIENT IN NO APPARENT RESPIRATORY DISTRESS NOTED. NO COMPLAINED OF PAIN NOTED AT THIS TIME. ABLE TO MAKE NEEDS KNOWN. AMBULATORY. INVESTIGATIONAL DRUGS ADMINISTERED, NO ADVERSE EFFECTS NOTED, DENIES SI/HI. ALL NEEDS MET AND ATTENDED WELL. WILL ENDORSE TO BOX CAR BRACER FOR JAS NURSE.
--- NOTE | 2021-06-09 19:00 | NUR ---
CLINICAL TRIAL RN OPENING NOTES RECEIVED PATIENT IN BED AWAKE ALERT AND ORIENTED X 4. PATIENT IS ON ROOM AIR. NO S/S OF RESPIRATORY DISTRESS NOTED. NO COMPLAIN OF PAIN NOTED. NO AKATHASIA, TREMORS, SI/HI, NOTED. WILL CONTINUE TO MONITOR.
[2021-06-09] MEDS: LORAZEPAM 1 MG TABLET FOR AGITATION/ANXIETY PO PRN (19:35)
--- NOTE | 2021-06-09 19:35 | NUR ---
PT C/O ANXIETY, PER PT REQUEST ATIVAN 1MG 1 TAB PO Q6H PRN ADMINISTERED AT THIS TIME. WILL CONTINUE TO MONITOR.
[2021-06-09 20:00] VITALS: BP 161/94
--- NOTE | 2021-06-10 06:26 | NUR ---
DATA NETWORK ARCHITECT CLOSING NOTE PT IS AWAKE IN BED AT THIS TIME.A/OX4, ABLE TO MAKE NEEDS KNOWN. PT IS BRP, STABLE ON ROOM AIR. NO SOB, S/S OF RESPIRATORY DISTRESS NOTED. PT DENIES PAIN OR DISCOMFORT AT THIS TIME. SKIN IS INTACT. NO AKATHASIA OR TREMORS NOTED. ALL NEEDS HAVE BEEN MET. SAFETY, SEIZURE, AND ASPIRATION PRECAUTIONS MAINTAINED AT ALL TIMES. BED IN LOWEST LOCKED POSITION WITH SIDE RAILS UPX2, HOB ELEVATED, CALL LIGHT AND TABLE WITHIN REACH. WILL ENDORSE TO ONCOMING NURSE FOR JAS.
[2021-06-10 08:00] VITALS: BP 154/77
[2021-06-10] MEDS: CLONIDINE HCL 0.1 MG TABLET PO PRN (09:09)
[2021-06-10] MEDS: INVEST MED Kar XT OR PLACEBO 50/20 MG PO SCH ×2 (10:14→22:00)
[2021-06-10 16:08] VITALS: BP 150/92
--- NOTE | 2021-06-10 18:39 | NUR ---
MS/RN CLOSING NOTE PATIENT IS ON BED AT THIS TIME. AWAKE ALERT AND ORIENTED X4. PATIENT IS ON ROOM AIR. PATIENT IN NO APPARENT RESPIRATORY DISTRESS NOTED. NO COMPLAINED OF PAIN NOTED AT THIS TIME. ABLE TO MAKE NEEDS KNOWN. AMBULATORY. INVESTIGATIONAL DRUGS ADMINISTERED, NO ADVERSE EFFECTS NOTED, DENIES SI/HI. ALL NEEDS MET AND ATTENDED WELL. WILL ENDORSE TO DRAINMAN FOR JAS NURSE.
[2021-06-10 20:00] VITALS: BP 149/85
[2021-06-11] MEDS: ZOLPIDEM TARTRATE 10 MG TABLET PO PRN ×2 (04:16→16:14)
--- NOTE | 2021-06-11 04:16 | NUR ---
PT C/O INSOMNIA, PER PT REQUEST AMBIEN 1OMG 1 TAB PO HS PRN ADMINISTERED AT THIS TIME FOR SLEEP. WILL CONTINUE TO MONITOR.
--- NOTE | 2021-06-11 06:30 | NUR ---
MS/RN CLOSING NOTE PATIENT IS ON BED AT THIS TIME. AWAKE ALERT AND ORIENTED X4. PATIENT IS ON ROOM AIR. PATIENT IN NO APPARENT RESPIRATORY DISTRESS NOTED. NO COMPLAINED OF PAIN NOTED AT THIS TIME. ABLE TO MAKE NEEDS KNOWN. AMBULATORY. INVESTIGATIONAL DRUGS ADMINISTERED, NO ADVERSE EFFECTS NOTED, DENIES SI/HI. ALL NEEDS MET AND ATTENDED WELL. WILL ENDORSE TO ONCOMING SHIFT FOR JAS.
--- NOTE | 2021-06-11 07:08 | NUR ---
RN NOTES PATIENT IN THE ROOM RESTING IN BED, AWAKE AND VERBALLY RESPONSIVE; ON CLINICAL TRIAL. CURRENTLY EATING BREAKFAST. NO COMPLAINTS AT THIS TIME. SAFETY MEASURES IN PLACE. WILL CONTINUE TO MONITOR.
[2021-06-11 08:00] VITALS: BP 135/89
[2021-06-11] MEDS: AMLODIPINE BESYLATE 5 MG TABLET PO SCH (09:06)
[2021-06-11] MEDS: LORAZEPAM 1 MG TABLET FOR AGITATION/ANXIETY PO PRN ×2 (09:06→21:04)
[2021-06-11] MEDS: INVEST MED Kar XT OR PLACEBO 50/20 MG PO SCH ×2 (09:58→22:00)
[2021-06-11 16:00] VITALS: BP 160/87
--- NOTE | 2021-06-11 16:16 | NUR ---
RN NOTES PATIENT REQUESTED AMBIEN TO HELP W/ SLEEPING; PER PATIENT, HE HAD A BAD DREAM LAST NIGHT AND WANTS A GOOD SLEEP RIGHT NOW. NO ADVERSE CHANGE NOTED. SEEN PATIENT AMBULATING TO THE ROOM AFTER TAKING MEDICATION.
[2021-06-11] MEDS: CLONIDINE HCL 0.1 MG TABLET PO PRN (17:34)
--- NOTE | 2021-06-11 18:08 | NUR ---
RN NOTES CLONIDINE PRN GIVEN TO PATIENT FOR BP-160/87, HR-83.
--- NOTE | 2021-06-11 18:40 | NUR ---
RN NOTES PATIENT RESTING IN BED, AWAKE AND VERBALLY RESPONSIVE, NOT IN ACUTE DISTRESS. DUE MEDICATION AND INVESTIGATIONAL MEDICATION GIVEN TO PATIENT. NO ADVERSE CHANGE NOTED. SAFETY MEASURES MAINTAINED. WILL ENDORSE TO SOLAR POWER INSTALLER RN FOR JAS.
[2021-06-11 20:00] VITALS: BP 160/90
--- NOTE | 2021-06-11 20:19 | NUR ---
MS RN OPENING NOTES PATIENT WAS LAST SEEN AWAKE RESTING ON HIS BED. PATIENT'S ALERT AND ORIENTED X4. PATIENT'S ON ROOM AIR WITH NO RESPIRATORY DISTRESS NOTED. PATIENT HAS NO IV ACCESS DUE TO CLINICAL TRIAL STATUS. PATIENT'S IN NO ACUTE DISTRESS AT THIS TIME. SAFETY MEASURES IN PLACE: BED LOCKED, SIDE RAILS UPX2, AND CALL LIGHT WITHIN REACH OF THE PATIENT. WILL CONTINUE TO MONITOR THE PATIENT.
[2021-06-12 04:00] VITALS: BP 158/90
--- NOTE | 2021-06-12 04:13 | NUR ---
MS RN NOTES Breanne Kay (Patient's girlfriend). [phone]
--- NOTE | 2021-06-12 07:16 | NUR ---
MS RN OPENING NOTES PATIENT ON BED, AWAKE AND A/O X 4. PT IS STABLE ON ROOM AIR TOLERATING WELL. NO SOB OR S/S OF RESPIRATORY DISTRESS NOTED. PT HAS NO C/O PAIN OR DISCOMFORT AT THIS TIME. NO UNTOWARD BEHAVIOR NOTED AT THIS TIME. SAFETY MEASURES IN PLACED. BED IN LOWEST LOCKED POSITION, HOB ELEVATED, SIDE RAILS UP X2. CALL LIGHT AND TABLE WITHIN REACH. WILL CONTINUE MONITORING PATIENT.
--- NOTE | 2021-06-12 07:28 | NUR ---
MS RN CLOSING NOTES PATIENT WAS LAST SEEN SLEEPING IN BED. PATIENT'S ALERT AND ORIENTED X4. PATIENT'S ON ROOM AIR WITH NO RESPIRATORY DISTRESS NOTED. PATIENT HAS NO IV ACCESS DUE TO CLINICAL TRIAL STATUS. PATIENT'S IN NO ACUTE DISTRESS AT THIS TIME. SAFETY MEASURES IN PLACE: BED LOCKED, SIDE RAILS UPX2, AND CALL LIGHT WITHIN REACH OF THE PATIENT. WILL CONTINUE TO MONITOR THE PATIENT.
[2021-06-12 08:00] VITALS: BP 142/88
--- NOTE | 2021-06-12 08:55 | NUR ---
MS RN NOTE SPOKE WITH PATIENT'S FIANCE, HEATHER SHEN . SHE WANTED TO SPEAK WITH DR. MCDONALD. APPARENTLY, PATIENT HAD A HARD TIME SLEEPING THE OTHER NIGHT BECAUSE HE HAD A NIGHTMARE WHICH MAKES HIM ANXIOUS. PATIENT IS NOT VERBALIZING/ COMMUNICATING MUCH TO THE NURSES AND USUALLY TALKS TO THE FIANCE INSTEAD. MITCHEL'S NUMBER GIVEN TO DR. MCDONALD.
[2021-06-12] MEDS: AMLODIPINE BESYLATE 5 MG TABLET PO SCH (09:03)
[2021-06-12] MEDS: INVEST MED Kar XT OR PLACEBO 50/20 MG PO SCH ×2 (10:05→21:42)
[2021-06-12] MEDS: MAGNESIUM HYDROXIDE 30 ML UDC PO PRN ×2 (11:57→18:30)
[2021-06-12 16:00] VITALS: BP 142/82
--- NOTE | 2021-06-12 18:00 | NUR ---
MS RN NOTE PATIENT SEEN BY DR. MCDONALD, WITH NO NEW ORDER AT THIS TIME.
--- NOTE | 2021-06-12 18:48 | NUR ---
MS RN CLOSING NOTES PATIENT ON BED, AWAKE BUT SLEEPS INTERMITTENTLY AND A/O X 4. PT IS STABLE ON ROOM AIR TOLERATING WELL. NO SOB OR S/S OF RESPIRATORY DISTRESS NOTED. PT HAS NO C/O PAIN OR DISCOMFORT AT THIS TIME. NO UNTOWARD BEHAVIOR NOTED AT THIS TIME. SAFETY MEASURES IN PLACED. BED IN LOWEST LOCKED POSITION, HOB ELEVATED, SIDE RAILS UP X2. CALL LIGHT AND TABLE WITHIN REACH. WILL ENDORSE PATIENT TO NEXT SHIFT FOR CONTINUITY OF CARE.
--- NOTE | 2021-06-12 19:15 | NUR ---
MS RN OPENING NOTES: RECEIVED PATIENT IN BED, ASLEEP. NO DISTRESS NOTED. BED IN LOWEST AND LOCKED POSITION.
[2021-06-12 20:00] VITALS: BP 146/93
--- NOTE | 2021-06-13 07:00 | NUR ---
RN OPENING NOTES RECEIVED PATIENT AWAKE IN BED AT THIS TIME. AOX4, NO SOB NOTED, NO S/O ANY ACUTE DISTRESS. DENIES PAIN AT THIS TIME. ABLE TO MAKE NEEDS KNOWN. DENIES SI/HI OR VISUAL OR AUDITORY HALLUCINATION. NO S/O TREMORS/AKATHISIA NOTED. SAFETY PRECAUTIONS IN PLACE AND MAINTAINED AT ALL TIMES. BED IN LOWEST LOCKED POSITION, SIDE RAILS UPX2, HOB ELEVATED, CALL LIGHT AND TABLE WITHIN REACH. WILL CONTINUE TO MONITOR
[2021-06-13 08:00] VITALS: BP 141/80
[2021-06-13] MEDS: AMLODIPINE BESYLATE 5 MG TABLET PO SCH (08:22)
[2021-06-13 08:24] VITALS: BP 141/80
[2021-06-13] MEDS: INVEST MED Kar XT OR PLACEBO 50/20 MG PO SCH ×2 (10:01→21:44)
[2021-06-13] MEDS: MAG HYDROX/AL HYDROX/SIMETH 30 ML UDC PO PRN ×2 (13:25→21:50)
--- NOTE | 2021-06-13 13:26 | NUR ---
PATIENT C/O INDIGESTION/NAUSEA. VS BP 132/74, HR 76, RR 20, T 98.0, SPO2 98% ON RA. PER PATIENT REQUEST, MAALOX 30ML PO Q6H PRN FOR INDIGESTION/NAUSEA ADMINISTERED AT THIS TIME PER ORDER. WILL CONTINUE TO MONITOR
--- NOTE | 2021-06-13 19:00 | NUR ---
END OF SHIFT SUMMARY PATIENT AWAKE IN BED AT THIS TIME. PATIENT REMAINED STABLE THROUGHOUT SHIFT. ALL CARE, NEED, MEDICATIONS AND TREATMENT ADMINISTERED ANTICIPATED PER ORDER. PATIENT DENIES SI/HI, AND DENIES VISUAL/AUDITORY HALLUCINATION.SAFETY PRECAUTIONS IN PLACE AND MAINTAINED AT ALL TIMES. BED IN LOWEST LOCKED POSITION, SIDE RAILS UPX2, HOB ELEVATED, CALL LIGHT AND TABLE WITHIN REACH. WILL ENDORSE TO MUSIC DEPARTMENT CHAIR NURSE FOR JAS
--- NOTE | 2021-06-13 19:20 | NUR ---
MS RN OPENING NOTES: RECEIVED PATIENT IN BED, AWAKE, A/O X4. NO DISTRESS NOTED. CALL LIGHT WITHIN REACH. BED IN LOWEST AND LOCKED POSITION. PATIENT IS CALM.
[2021-06-13 20:00] VITALS: BP 138/76
[2021-06-13] MEDS: ZOLPIDEM TARTRATE 10 MG TABLET PO PRN (21:50)
--- NOTE | 2021-06-14 07:34 | NUR ---
MS RN OPENING NOTE RECEIVED PATIENT IN BED, AWAKE. ALERT AND ORIENTED X 4. NO S/S OF DISTRESS NOTED. ABLE TO MAKE NEEDS KNOWN. BREATHING IS EVEN AND UNLABORED. SAFETY MEASURES IN PLACE WITH BED LOCKED AND LOW POSITION, SIDE RAILS UP X 2. CALL LIGHT WITHIN REACH. WILL CONTINUE TO MONITOR THROUGHOUT SHIFT.
[2021-06-14 08:00] VITALS: BP 157/74
[2021-06-14] MEDS: AMLODIPINE BESYLATE 5 MG TABLET PO SCH (08:38)
[2021-06-14] MEDS: INVEST MED Kar XT OR PLACEBO 50/20 MG PO SCH ×2 (10:08→22:00)
[2021-06-14 16:00] VITALS: BP 156/75
[2021-06-14] MEDS: CLONIDINE HCL 0.1 MG TABLET PO PRN (16:14)
--- NOTE | 2021-06-14 18:52 | NUR ---
MS RN CLOSING NOTES PATIENT IN BED, RESTING COMFORTABLY. NO S/S OF DISTRESS NOTED. NO COMPLAINTS OF PAIN AT THIS TIME. ALL NEEDS MET THROUGHOUT SHIFT. ADMINSTERED CLONODINE 0.1MG FOR ELEVATED BP. SAFETY MEASURES MAINTAINED. WILL ENDORSE CONTINUITY OF CARE TO ONCOMING SHIFT.
--- NOTE | 2021-06-14 19:30 | NUR ---
MS RN OPENING NOTES PATIENT LAYING IN BED WATCHING TV, ALERT/ORIENTED X 4, NO S/S OF DISTRESS OR SOB NOTED, BREATHING EVEN AND UNLABORED. PT DENIES PAIN AT THIS TIME. PT IS AMBULATORY WITH BRP. SAFETY MEASURES IN PLACE: BED LOCKED IN LOW POSITION, SIDE RAILS UP X 2, CALL LIGHT WITHIN REACH. WILL CONTINUE TO MONITOR PATIENT
[2021-06-14 20:00] VITALS: BP 147/80
[2021-06-14] MEDS: ZOLPIDEM TARTRATE 10 MG TABLET PO PRN (22:05)
--- NOTE | 2021-06-15 07:34 | NUR ---
MS CLOSING NOTES PATIENT LAYING IN BED WATCHING TV, ALERT/ORIENTED X 4, NO S/S OF DISTRESS OR SOB NOTED, BREATHING EVEN AND UNLABORED. MEDICATIONS GIVEN ORDERED, PT NEEDS MET THROUGHOUT SHIFT.SAFETY MEASURES IN PLACE: BED LOCKED IN LOW POSITION, SIDE RAILS UP X 2, CALL LIGHT WITHIN REACH. ENDORSED TO DAY SHIFT NURSE FOR CONTINUITY OF CARE
[2021-06-15 08:00] VITALS: BP 135/80
[2021-06-15] MEDS: AMLODIPINE BESYLATE 5 MG TABLET PO SCH (09:00)
[2021-06-15] MEDS: INVEST MED Kar XT OR PLACEBO 50/20 MG PO SCH ×2 (10:46→22:00)
--- NOTE | 2021-06-15 18:51 | NUR ---
MS RN CLOSING NOTES PATIENT IN BED, RESTING COMFORTABLY. NO S/S OF DISTRESS NOTED. NO COMPLAINTS OF PAIN AT THIS TIME. ALL NEEDS MET THROUGHOUT SHIFT. SAFETY MEASURES MAINTAINED. WILL ENDORSE CONTINUITY OF CARE TO ONCOMING SHIFT.
--- NOTE | 2021-06-15 19:30 | NUR ---
MS RN OPENING NOTES PATIENT AWAKE IN ROOM WATCHING TV, ALERT/ORIENTED X 4, NO S/S OF DISTRESS OR SOB NOTED, BREATHING EVEN AND UNLABORED. PT DENIES PAIN AT THIS TIME. PT IS AMBULATORY WITH BRP. SAFETY MEASURES IN PLACE: BED LOCKED IN LOW POSITION, SIDE RAILS UP X 2, CALL LIGHT WITHIN REACH. WILL CONTINUE TO MONITOR PATIENT
--- NOTE | 2021-06-15 20:00 | NUR ---
MS RN NOTE PATIENT REFUSED VITALS, RISKS AND BENEFITS EXPLAINED TO PATIENT BUT PATIENT STATED "I JUST WANT TO BE LEFT ALONE". WILL CONTINUE TO MONITOR
[2021-06-15] MEDS: ZOLPIDEM TARTRATE 10 MG TABLET PO PRN (22:00)
--- NOTE | 2021-06-16 06:49 | NUR ---
MS MERLYN NOTES PATIENT ASLEEP IN BED, NO S/S OF DISTRESS OR SOB NOTED, BREATHING EVEN AND UNLABORED. MEDICATIONS GIVEN ORDERED, PT NEEDS MET THROUGHOUT SHIFT.SAFETY MEASURES IN PLACE: BED LOCKED IN LOW POSITION, SIDE RAILS UP X 2, CALL LIGHT WITHIN REACH. WILL ENDORSE TO DAY SHIFT NURSE FOR CONTINUITY OF CARE Addendum: 06/16/21 at 7128 by TOSHA JOE RN PT NOT IN ROOM, DID NOT SIGN OUT, LAST SEEN IN ROOM AT 0515
[2021-06-16 08:00] VITALS: BP 142/82
--- NOTE | 2021-06-16 08:08 | NUR ---
CLINICAL TRIAL/RN OPENING NOTES RECEIVED PATIENT ON BED AWAKE, ALERT AND ORIENTED X4. PATIENT IS ON ROOM AIR. PATIENT IN NO APPARENT RESPIRATORY DISTRESS NOTED. NO COMPLAINED OF PAIN NOTED AT THIS TIME. WILL CONTINUE TO MONITOR.
[2021-06-16] MEDS: AMLODIPINE BESYLATE 5 MG TABLET PO SCH (08:50)
[2021-06-16] MEDS: INVEST MED Kar XT OR PLACEBO 50/20 MG PO SCH ×2 (10:16→22:14)
--- NOTE | 2021-06-16 18:54 | NUR ---
CLINICAL TRIAL/RN CLOSING NOTES PATIENT IS ON THE BED AT THIS TIME. AWAKE ALERT AND ORIENTED X4. PATIENT IS ON ROOM AIR. PATIENT IN NO APPARENT RESPIRATORY DISTRESS NOTED. NO COMPLAINED OF PAIN NOTED AT THIS TIME. ABLE TO MAKE NEEDS KNOWN. AMBULATORY. INVESTIGATIONAL DRUGS ADMINISTERED, NO ADVERSE EFFECTS NOTED, DENIES SI/HI. ALL NEEDS MET AND ATTENDED WELL. WILL ENDORSE TO POOL TECHNICIAN FOR JAS NURSE.
--- NOTE | 2021-06-16 19:30 | NUR ---
RN OPENING NOTE PATIENT IN THE ROOM, A/O X 4. ABLE TO MAKE NEEDS KNOWN. PATIENT IS CALM AND COOPERATIVE AT THIS TIME. INFORMED PATIENT OF NPO AFTER 2200 AND HOLDING LORAZEPAM AND AMBIEN AT 2200. BREATHING EVEN AND UNLABORED. SAFETY MEASURES IN PLACE: BED LOCKED NAD IN LOWEST POSITION, CALL LIGHT WITHIN REACH, SIDE RAILS UP. WILL MONITOR PATIENT CLOSELY.
[2021-06-16 20:00] VITALS: BP 165/86
[2021-06-16] MEDS: CLONIDINE HCL 0.1 MG TABLET PO PRN (21:13)
--- NOTE | 2021-06-16 21:13 | NUR ---
RN NOTE CATAPRES GIVEN FOR BP 168/86.
[2021-06-16] MEDS: LORAZEPAM 1 MG TABLET FOR AGITATION/ANXIETY PO PRN (21:45)
--- NOTE | 2021-06-16 21:45 | NUR ---
RN NOTE ATIVAN GIVEN D/T PATIENT'S ANXIOUSNESS, WILL REASSESS BEHAVIOR AND MED EFFECTIVENESS.
--- NOTE | 2021-06-17 07:25 | NUR ---
RN CLOSING NOTE PATIENT IN THE ROOM, A/O X 4. ABLE TO MAKE NEEDS KNOWN. PATIENT IS CALM AND COOPERATIVE AT THIS TIME. NPO STATUS AT THIS TIME. BREATHING EVEN AND UNLABORED. SAFETY MEASURES IN PLACE: BED LOCKED AND IN LOWEST POSITION, CALL LIGHT WITHIN REACH, SIDE RAILS UP. ALL NEEDS MET AND ATTENDED, ALL ORDERS CARRIED OUT. ENDORSED TO DAY SHIFT NURSE FOR JAS.
--- NOTE | 2021-06-17 07:37 | NUR ---
RN OPENING NOTE- PATIENT IN THE ROOM, LAYING QUIETLY IN BED A/O X 4. ABLE TO MAKE NEEDS KNOWN. PATIENT IS CALM AND COOPERATIVE AT THIS TIME. INFORMED PATIENT OF NPO STATUS STILL IN EFFECT. BREATHING EVEN AND UNLABORED. SAFETY MEASURES IN PLACE: BED LOCKED AND IN LOWEST POSITION, CALL LIGHT WITHIN REACH, SIDE RAILS UP. WILL MONITOR PATIENT CLOSELY.
[2021-06-17 08:00] VITALS: BP 137/76
[2021-06-17] MEDS: AMLODIPINE BESYLATE 5 MG TABLET PO SCH (09:14)
[2021-06-17] MEDS: INVEST MED Kar XT OR PLACEBO 50/20 MG PO SCH ×2 (09:14→22:12)
[2021-06-17 16:00] VITALS: BP 148/77
--- NOTE | 2021-06-17 19:00 | NUR ---
RN CLOSING NOTE- PATIENT IN THE ROOM, A/O X 4. ABLE TO MAKE NEEDS KNOWN. PATIENT IS CALM AND COOPERATIVE AT THIS TIME. SAFETY MEASURES IN PLACE: BED LOCKED AND IN LOWEST POSITION, CALL LIGHT WITHIN REACH, SIDE RAILS UP. ALL NEEDS MET AND ATTENDED
--- NOTE | 2021-06-17 19:00 | NUR ---
MS RN NOTES/CLINICAL TRIAL RECEIVED IN ROOM WATCHING TV PROGRAM,CONVERSANT,ABLE TO MAKE NEEDS KNOWN,NO SALINE LOCK PER GPS PROTOCOL AMBULATORY.WILL MONITOR BEHAVIOR FOR AKATHISIA.VITAL SIGNS WITH IN NORMAL LIMITS.
[2021-06-17 20:00] VITALS: BP 142/80
[2021-06-17] MEDS: ZOLPIDEM TARTRATE 10 MG TABLET PO PRN (22:42)
--- NOTE | 2021-06-17 22:42 | NUR ---
MS RN NOTES/CLINICAL TRIAL C/O INSOMNIA,AMBIEN 10MG PO GIVEN PER PATIENT REQUEST.
[2021-06-18 08:00] VITALS: BP 144/72
[2021-06-18] MEDS: AMLODIPINE BESYLATE 5 MG TABLET PO SCH (08:11)
[2021-06-18] MEDS: INVEST MED Kar XT OR PLACEBO 50/20 MG PO SCH ×2 (10:03→22:02)
[2021-06-18 16:00] VITALS: BP 143/78
[2021-06-18 20:00] VITALS: BP 155/65
--- NOTE | 2021-06-18 20:00 | NUR ---
MS RN NOTES/CLINICAL TRIAL IN ROOM WATCHING TV PROGRAM,A/O X4,AMBULATORY,ABLE TO MAKE NEEDS KNOWN.WILL CONTINUE TO MONITOR BEHAVIOR.
--- NOTE | 2021-06-18 20:35 | NUR ---
MS RN NOTES WENT DOWN TO SMOKE THIS TIME.
--- NOTE | 2021-06-18 22:02 | NUR ---
MS RN NOTES DUE INVESTIGATIONAL DRUGS,2 CAPSULE ADMINISTERED
--- NOTE | 2021-06-19 06:26 | NUR ---
MS RN NOTES NO CHANGE IN BEHAVIOR,MED COMPLIANT,SLEEP WELL WITH NO PHARMACOLOGICAL INTERVENTION,AMBIEN TO RESUME TONIGHT.
--- NOTE | 2021-06-19 07:30 | NUR ---
MS RN NOTES: RECEIVED PATIENT AWAKE IN BED, A/O X4. BED IN LOW POSITION, CALL LIGHTS WITHIN REACH, NO COMPLAINTS OF PAIN AND DISCOMFORT AT THIS TIME, NO CHANGES IN LOC. ON CLINICAL TRIAL, PATIENT APPEARS CALM WITH NO ADVERSE REACTION FROM MEDICINE OBSERVED, WILL CONTINUE TO MONITOR..
[2021-06-19] MEDS: AMLODIPINE BESYLATE 5 MG TABLET PO SCH (09:17)
[2021-06-19] MEDS: INVEST MED Kar XT OR PLACEBO 50/20 MG PO SCH ×2 (10:02→22:00)
[2021-06-19] MEDS ORDERED: ZOLPIDEM TARTRATE 10 MG TABLET PO PRN (13:00)
[2021-06-19] MEDS ORDERED: LORAZEPAM 1 MG TABLET FOR AGITATION/ANXIETY PO PRN (13:00)
--- NOTE | 2021-06-19 19:30 | NUR ---
MS RN CLOSING NOTES PATIENT AWAKE AND A/O X4. ON ROOM AIR. NOT IN DISTRESS. WITH NO IV ACCESS. SAFETY MEASURES IN PLACED. CALL LIGHT WITHIN REACH. BED ON LOWEST AND LOCKED POSITION WITH SIDE RAILS UP X2. ON CLINICAL TRIAL. WITH NO ADVERSE REACTIONS FROM THE MEDICATION GIVEN. WILL ENDORSE TO NEXT SHIFT FOR JAS.
--- NOTE | 2021-06-19 19:50 | NUR ---
MS RN NOTES: RECEIVED PATIENT AWAKE IN BED, BED IN LOW POSITION, CALL LIGHTS WITHIN REACH, NO COMPLAIN OF PAIN AND DISCOMFORT AT THIS TIME, NO CHANGES IN LOC. ON CLINICAL TRIAL, PATIENT APPEARS CALM NO ADVERSE REACTION FROM MEDICINE WAS OBSERVED, WILL CONTINUE TO MONITOR..
[2021-06-19 20:00] VITALS: BP 148/85
[2021-06-19] MEDS: ZOLPIDEM TARTRATE 10 MG TABLET PO PRN (22:04)
[2021-06-20 04:03] VITALS: BP 148/85
--- NOTE | 2021-06-20 07:30 | NUR ---
RN OPENING NOTES Patient seen comfortably lying in bed, no apparent distress noted, no SOB, respirations even and unlabored, denies any pain or discomfort at this time. Safety precautions in place, brakes locked, side rails up X 2, call light left within reach, will monitor closely for any changes.
--- NOTE | 2021-06-20 07:32 | NUR ---
MS RN CLOSING NOTES: PATIENT SLEEP IN BED COMFORTABLY, BED IN LOW POSITION, CALL LIGHTS WITHIN REACH, NO COMPLAIN OF PAIN AND DISCOMFORT AT THIS TIME, NO CHANGES IN BEHAVIOR, PATIENT IS A/O X4 AMBULATORY AND ABLE TO MAKE NEEDS KNOWN, KEPT CLEAN AND DRY, ALL NEEDS MET, ENDORSE TO INCOMING SHIFT.
[2021-06-20] MEDS: AMLODIPINE BESYLATE 5 MG TABLET PO SCH (10:03)
[2021-06-20] MEDS: INVEST MED Kar XT OR PLACEBO 50/20 MG PO SCH ×2 (10:09→21:57)
--- NOTE | 2021-06-20 18:53 | NUR ---
RN CLOSING NOTES Patient lying in bed, AO x 4, able to make needs known can follow simple commands, no SOB, breathing even and unlabored. Due medications given per MD order, tolerating well. Patient on clinical trial for a new antipsychotic medication for treatment of acute exacerbation of schizophrenia, no adverse effect noted at this time, no behavioral disturbance noted during shift. Call light left within reach, all needs attended, kept clean and dry, safety precautions maintained, brakes locked, side rails up X 2, will endorse to next shift for continuity of care.
[2021-06-20 20:00] VITALS: BP 146/81
[2021-06-20] MEDS: ZOLPIDEM TARTRATE 10 MG TABLET PO PRN (21:57)
--- NOTE | 2021-06-21 08:04 | NUR ---
MS/RN OPENING NOTES RECEIVED PATIENT RESTING ON BED AWAKE,ALERT AND ORIENTED X4. PATIENT IS ON ROOM AIR. PATIENT IN NO APPARENT RESPIRATORY DISTRESS NOTED.NO S/S DISTRESS NOTED NO COMPLAINED OF PAIN NOTED AT THIS TIME. WILL CONTINUE TO MONITOR.
[2021-06-21] MEDS: AMLODIPINE BESYLATE 5 MG TABLET PO SCH (08:58)
[2021-06-21] MEDS: INVEST MED Kar XT OR PLACEBO 50/20 MG PO SCH ×2 (10:00→22:01)
[2021-06-21] MEDS: CLONIDINE HCL 0.1 MG TABLET PO PRN ×2 (10:28→16:54)
[2021-06-21] MEDS: MAG HYDROX/AL HYDROX/SIMETH 30 ML UDC PO PRN (10:28)
--- NOTE | 2021-06-21 11:49 | NUR ---
MS/RN NOTE: PATIENT FEELING ANXIOUS REQUESTING ANXIETY MEDICATIONS ATIVAN 1 MG PO PRN GIVEN PER ORDER WILL CONTINUE MONITORING.
[2021-06-21 18:40] VITALS: BP 144/85
--- NOTE | 2021-06-21 20:16 | NUR ---
GPS RN NOTES: RECEIVED PATIENT LAYING ON BED, AWAKE, ALERT AND ORIENTED X4. APPROPRIATE AFFECT, CALM AND COOPERATIVE. DENIES SI/HI AT THIS TIME. DENIES PAIN AT THIS TIME. NO S/S OF DISTRESS, RESPIRATION EVEN AND UNLABORED WITH EQUAL RISE AND FALL OF THE CHEST ON ROOM AIR, SPO2 100%. OFFERED FLUID AND SNACKS TOLERATED. WILL CONTINUE TO MONITOR FOR SAFETY, MOOD AND BEHAVIOR.
[2021-06-21 20:25] VITALS: BP 159/94
--- NOTE | 2021-06-21 21:53 | NUR ---
GPS RN NOTES: PATIENT ASKED FOR SLEEP MEDICATION. AMBIEN 10MG GIVEN PO AT 2149. WILL CONTINUE TO MONITOR.
[2021-06-21] MEDS: ZOLPIDEM TARTRATE 10 MG TABLET PO PRN (22:26)
--- NOTE | 2021-06-22 07:20 | NUR ---
GPS RN CLOSING NOTES: PATIENT IS AWAKE, A/O X4. PATIENT WENT OUT OF THE UNIT FOR SMOKE BREAK TWICE THIS SHIFT. PATIENT HAS NO S/S OF DISTRESS. RESPIRATION EVEN AND UNLABORED WITH EQUAL RISE AND FALL OF THE CHEST, ON ROOM AIR. ALL PATIENT CARE NEEDS HAVE BEEN MET ANTICIPATED. WILL CONTINUE TO MONITOR AND ENDORSE TO AM SHIFT FOR CONTINUITY OF CARE.
[2021-06-22 08:00] VITALS: BP 144/80
[2021-06-22] MEDS: AMLODIPINE BESYLATE 5 MG TABLET PO SCH (08:16)
[2021-06-22] MEDS: INVEST MED Kar XT OR PLACEBO 50/20 MG PO SCH ×2 (10:00→21:23)
[2021-06-22 16:00] VITALS: BP 141/94
--- NOTE | 2021-06-22 18:24 | NUR ---
MS RN CLOSING NOTE PATIENT CURRENTLY LYING IN BED, AWAKE. A/OX4. CLINICAL TRIAL PATIENT. STABLE ON ROOM AIR - NO SOB NOTED. NO DISTRESS/DISCOMFORT NOTED. NO IV ACCESS. ENCOURAGED PATIENT TO USE CALL LIGHT IF NEEDED. SAFETY MEASURES IN PLACE. WILL ENDORSE TO PORTABLE POWER TOOL REPAIRER NURSE FOR JAS.
[2021-06-22 20:00] VITALS: BP 140/68
--- NOTE | 2021-06-22 20:36 | NUR ---
MS RN OPENING NOTES RECEIVED PATIENT IN BED RESTING COMFORTABLY. ALERT AND ORIENTED X 4, NO S/SX OF ACUTE RESPIRATORY DISTRESS NOTED. PATIENT IS CALM, COOPERATIVE AND MED COMPLIANT. AMBULATORY WITH STEADY GAIT. NO IV ACCESS. ON ROOM AIR TOLERATING WELL. DENIES SI/HI/AVH AT THIS TIME. SAFETY PRECAUTIONS IN PLACE. BED ON LOWEST LOCKED POSITION, SIDE RAILS UP, KEPT CALL LIGHT WITHIN EASY REACH. NO S/SX OF EPS, [place]IS[place], ALL NEEDS ATTENDED AND MET. WILL CONTINUE TO MONITOR.
--- NOTE | 2021-06-22 21:31 | NUR ---
PS-RN NOTES: INSOMNIA PATIENT C/O INABILITY TO SLEEP. PRN AMBIEN 10MG PO GIVEN ORDERED. WILL CONTINUE TO MONITOR. Addendum: 06/23/21 at 0058 by KINDRA FUENTES RN -RN NOTES:
[2021-06-22] MEDS: ZOLPIDEM TARTRATE 10 MG TABLET PO PRN (21:32)
--- NOTE | 2021-06-23 06:27 | NUR ---
MS RN CLOSING NOTES PATIENT IN BED ASLEEP, AROUSES EASILY. IN NO ACUTE DISTRESS NOTED. SAFETY PRECAUTIONS IN PLACE. BED ON LOWEST LOCKED POSITION, SIDE RAILS UP, KEPT CALL LIGHT WITHIN EASY REACH. NO S/SX OF EPS, AKATHISIA, ALL NEEDS ATTENDED AND MET, DUE MEDS GIVEN ORDERED. WILL ENDORSE TO ONCOMING SHIFT FOR CONTINUITY OF CARE.
--- NOTE | 2021-06-23 07:30 | NUR ---
m/s seafood service team member: notes received pt in bed awake, a/ox4; ambulatory. no distress noted. instructed to call for assistance.
[2021-06-23 08:00] VITALS: BP 136/77
[2021-06-23] MEDS: AMLODIPINE BESYLATE 5 MG TABLET PO SCH (08:44)
[2021-06-23] MEDS: INVEST MED Kar XT OR PLACEBO 50/20 MG PO SCH ×2 (10:07→21:40)
[2021-06-23 16:27] VITALS: BP 127/75
--- NOTE | 2021-06-23 18:24 | NUR ---
m/s mortgage loan reviewer: md visit seen by dr. khanna at this time.
--- NOTE | 2021-06-23 19:15 | NUR ---
RN OPENING NOTE PT IN ROOM, WATCHING TV. A/OX4. DENIES ANY PAIN OR DISCOMFORT. NO SOB. AMBULATES AD LENKA. REINFORCED SAFETY TEACHING AND INSTRUCTED TO CALL FOR ASSISTANCE. PT VERBALIZED UNDERSTANDING.
[2021-06-23 20:00] VITALS: BP 129/71
[2021-06-23] MEDS: ZOLPIDEM TARTRATE 10 MG TABLET PO PRN (21:41)
--- NOTE | 2021-06-24 07:26 | NUR ---
RN NOTES PATIENT IN BED RESTING, AWAKE AND RESPONSIVE. NOT IN ACUTE DISTRESS. BREATHING EVEN AND UNLABORED, ON ROOM AIR. ON CLINICAL TRIAL. SAFETY PRECAUTIONS IN PLACE: BED ON LOWEST LOCKED POSITION, SIDE RAILS UP, AND CALL LIGHT WITHIN EASY REACH. WILL CONTINUE TO MONITOR.
[2021-06-24 08:00] VITALS: BP 145/72
[2021-06-24] MEDS: AMLODIPINE BESYLATE 5 MG TABLET PO SCH (09:11)
[2021-06-24] MEDS: INVEST MED Kar XT OR PLACEBO 50/20 MG PO SCH ×2 (10:08→21:57)
[2021-06-24 16:00] VITALS: BP 150/75
--- NOTE | 2021-06-24 19:00 | NUR ---
RN NOTES NO ADVERSE CHANGE NOTED. DUE MEDS GIVEN TODAY. SAFETY MEASURES MAINTAINED. WILL ENDORSE TO SCISSORS SHARPENER RN FOR JAS.
--- NOTE | 2021-06-24 19:49 | NUR ---
MS RN OPENING NOTES RECEIVED PT IN BED, WATCHING TV. AOx4, ABLE TO MAKE NEEDS KNOWN. ON RA AND TOLERATING WELL. NO SOB NOTED. NO S/SX OF RESPIRATORY DISTRESS NOTED. CLINICAL TRIAL PATIENT. NO IV ACCESS. SAFETY PRECAUTIONS IN PLACE: BED IN LOWEST, LOCKED POSITION, BRAKES ON, SIDERAILS UPx2. TABLE AND CALL LIGHT WITHIN REACH. WILL CONTINUE TO MONITOR.
[2021-06-24 20:00] VITALS: BP 137/79
[2021-06-24] MEDS: ZOLPIDEM TARTRATE 10 MG TABLET PO PRN (21:58)
--- NOTE | 2021-06-24 22:03 | NUR ---
ADMINISTERED AMBIEN PER PT REQUEST. WILL CONTINUE TO MONITOR.
--- NOTE | 2021-06-25 06:24 | NUR ---
MS RN CLOSING NOTES PT IN BED, AWAKENS TO VERBAL STIMULI. AOx4, ABLE TO MAKE NEEDS KNOWN. ON RA AND TOLERATING WELL. NO SOB NOTED. NO S/SX OF RESPIRATORY DISTRESS NOTED. CLINICAL TRIAL PATIENT. NO IV ACCESS. SAFETY PRECAUTIONS IN PLACE: BED IN LOWEST, LOCKED POSITION, BRAKES ON, SIDERAILS UPx2. ALL NEEDS MET. PT KEPT CLEAN AND DRY. TABLE AND CALL LIGHT WITHIN REACH. WILL ENDORSE TO ONCOMING SHIFT.
[2021-06-25 08:00] VITALS: BP 139/74
[2021-06-25] MEDS: AMLODIPINE BESYLATE 5 MG TABLET PO SCH (09:01)
[2021-06-25] MEDS: INVEST MED Kar XT OR PLACEBO 50/20 MG PO SCH ×2 (10:07→21:58)
[2021-06-25 16:00] VITALS: BP 149/74
--- NOTE | 2021-06-25 19:25 | NUR ---
MS RN NOTES GOING DOWN TO SMOKE,AMBULATORY,MED COMPLIANT,INVESTIGATIONAL DRUGS DUE AT 2200.WILL CONTINUE TO MONITOR BEHAVIOR.
--- NOTE | 2021-06-25 19:40 | NUR ---
MS RN NOTES BACK IN THE UNIT THIS TIME.
[2021-06-25 20:00] VITALS: BP 152/82
[2021-06-25 20:44] VITALS: BP 152/82
[2021-06-25] MEDS: ZOLPIDEM TARTRATE 10 MG TABLET PO PRN (21:53)
--- NOTE | 2021-06-25 21:53 | NUR ---
MS RN NOTES C/O INSOMNIA,AMBIEN 10MG PO GIVEN PER PATIENT REQUEST.
--- NOTE | 2021-06-26 06:28 | NUR ---
MS RN NOTES SLEEP WELL WITH AMBIEN,MED COMPLIANT.NO SIGNIFICANT CHANGE IN BEHAVIOR.
--- NOTE | 2021-06-26 07:10 | NUR ---
RN OPENING NOTE RECEIVED PATIENT IN BED. A/O X4. ON ROOM AIR, DENIES SOB, NO S/S OF RESPIRATORY DISTRESS. ABLE TO MAKE NEEDS KNOWN. SAFETY MEASURES MAINTAINED. BED IN LOWEST POSITION, BRAKES LOCKED. SIDE RAILS UP X2. CALL LIGHT WITHIN REACH. WILL CONTINUE PLAN OF CARE.
[2021-06-26] MEDS: AMLODIPINE BESYLATE 5 MG TABLET PO SCH (09:00)
[2021-06-26] MEDS: INVEST MED Kar XT OR PLACEBO 50/20 MG PO SCH ×2 (09:45→22:00)
[2021-06-26 14:04] VITALS: BP 149/78
--- NOTE | 2021-06-26 14:13 | NUR ---
RN NOTE DR MCDONALD CALL REGARDING TIMED BLOOD DRAW AT 1800 AND 2130. LAB WAS INFORMED.
--- NOTE | 2021-06-26 17:58 | NUR ---
RN CLOSING NOTE PATIENT WALKING AROUND THE HALLWAY. A/O X4. AMBULATORY. ON ROOM AIR, NO SOB NOTED, IN NO APPARENT DISTRESS. NO REPORTS OF PAIN OR DISCOMFORT AT THIS TIME. DUE MEDS GIVEN ORDERED. ALL NEEDS HAVE BEEN MET AND ATTENDED. SAFETY MEASURES MAINTAINED. BED IN LOWEST POSITION, BRAKES LOCKED. SIDE RAILS UP X2. KEPT CALL LIGHT WITHIN REACH. WILL ENDORSE CONTINUITY OF CARE TO ONCOMING SHIFT.
--- NOTE | 2021-06-26 19:30 | NUR ---
RN NOTES PATIENT WALKING AROUND. A/O X4. AMBULATORY. ON ROOM AIR, NO SOB NOTED, IN NO APPARENT DISTRESS. NO REPORTS OF PAIN OR DISCOMFORT AT THIS TIME. ALL NEEDS HAVE BEEN MET AND ATTENDED AT THIS TIME. SAFETY MEASURES MAINTAINED. BED IN LOWEST POSITION, BRAKES LOCKED. SIDE RAILS UP X2. KEPT CALL LIGHT WITHIN REACH. WILL CONTINUE TO MONITOR.
[2021-06-26 20:39] VITALS: BP 150/71
--- NOTE | 2021-06-27 06:39 | NUR ---
RN NOTES PATIENT WALKING AROUND. A/O X4. AMBULATORY. ON ROOM AIR, NO SOB NOTED, IN NO APPARENT DISTRESS. NO REPORTS OF PAIN OR DISCOMFORT AT THIS TIME. ALL NEEDS HAVE BEEN MET AND ATTENDED AT THIS TIME. SAFETY MEASURES MAINTAINED. BED IN LOWEST POSITION, BRAKES LOCKED. SIDE RAILS UP X2. KEPT CALL LIGHT WITHIN REACH. WILL ENDORSE CARE.
--- NOTE | 2021-06-27 07:47 | NUR ---
MS/RN OPENING NOTES RECEIVED REPORT PATIENT IS OUT IN THE UNIT AT THIS TIME.
--- NOTE | 2021-06-27 08:13 | NUR ---
MS/RN NOTES PATIENT CAME BACK IN THE ROOM. PATIENT IS ON ROOM AIR. PATIENT IN NO APPARENT RESPIRATORY DISTRESS NOTED. NO COMPLAINED OF PAIN NOTED AT THIS TIME. AMBULATORY. WILL CONTINUE TO MONITOR.
[2021-06-27] MEDS: AMLODIPINE BESYLATE 5 MG TABLET PO SCH (08:35)
[2021-06-27] MEDS: INVEST MED Kar XT OR PLACEBO 50/20 MG PO SCH ×3 (10:10→22:00)
--- NOTE | 2021-06-27 19:19 | NUR ---
CLINICAL TRIAL/RN CLOSING NOTES PATIENT IS ON THE BED AT THIS TIME. AWAKE ALERT AND ORIENTED X4. PATIENT IS ON ROOM AIR. PATIENT IN NO APPARENT RESPIRATORY DISTRESS NOTED. NO COMPLAINED OF PAIN NOTED AT THIS TIME. ABLE TO MAKE NEEDS KNOWN. AMBULATORY. INVESTIGATIONAL DRUGS ADMINISTERED, NO ADVERSE EFFECTS NOTED, DENIES SI/HI. ALL NEEDS MET AND ATTENDED WELL. WILL ENDORSE TO WASTE DUSTER FOR JAS.
--- NOTE | 2021-06-27 19:53 | NUR ---
MS RN OPENING NOTES RECEIVED PATIENT IN BED. PT IS AOx4. ABLE TO MAKE NEEDS KNOWN. ON RA AND TOLERATING WELL. NO SOB NOTED. NO S/SX OF RESPIRATORY DISTRESS NOTED. CLINICAL TRIAL PATIENT. NO IV ACCESS. SAFETY PRECAUTIONS IN PLACE: BED IN LOWEST, LOCKED POSITION, BRAKES ON, SIDERAILS UPx2. TABLE AND CALL LIGHT WITHIN REACH. WILL CONTINUE TO MONITOR.
[2021-06-27 20:00] VITALS: BP 145/71
[2021-06-27] MEDS: ZOLPIDEM TARTRATE 10 MG TABLET PO PRN (21:59)
--- NOTE | 2021-06-27 22:09 | NUR ---
ATTEMPTED TO GIVE INVESTIGATIONAL MEDICATION BUT PATIENT REFUSED. WILL ATTEMPT AGAIN AT A LATER TIME.
--- NOTE | 2021-06-27 23:39 | NUR ---
ATTEMPTED TO GIVE INVESTIGATIONAL MEDICATION AGAIN. PT REFUSED. WILL NOTIFY
--- NOTE | 2021-06-28 04:55 | NUR ---
PATIENT REQUESTED REJI. REMOVED FROM [facility]. WENT TO ADMINISTER IT AND PATIENT REFUSED TO TAKE MED. SINCE PACKAGE WAS OPEN, I WASTED IT IN THE BIN IN [facility] ROOM.
--- NOTE | 2021-06-28 06:33 | NUR ---
MS RN CLOSING NOTES PATIENT IN BED. PT IS AOx4. ABLE TO MAKE NEEDS KNOWN. ON RA AND TOLERATING WELL. NO SOB NOTED. NO S/SX OF RESPIRATORY DISTRESS NOTED. CLINICAL TRIAL PATIENT. NO IV ACCESS. PT REFUSED INVESTIGATIONAL MEDICATION. ALL NEEDS MET. PT KEPT CLEAN AND DRY. SAFETY PRECAUTIONS IN PLACE: BED IN LOWEST, LOCKED POSITION, BRAKES ON, SIDERAILS UPx2. TABLE AND CALL LIGHT WITHIN REACH. WILL ENDORSE TO ONCOMING SHIFT.
[2021-06-28 08:00] VITALS: BP 155/97
[2021-06-28] MEDS: AMLODIPINE BESYLATE 5 MG TABLET PO SCH (09:01)
[2021-06-28] MEDS: INVEST MED Kar XT OR PLACEBO 50/20 MG PO SCH ×2 (10:06→21:54)
[2021-06-28 16:00] VITALS: BP 169/73
--- NOTE | 2021-06-28 16:00 | NUR ---
MS RN NOTE PER PATIENT, HE STATES HE "WILL TAKE THE INVESTIGATIONAL DRUG ON TIME TONIGHT." DR. MCDONALD MADE AWARE.
--- NOTE | 2021-06-28 19:13 | NUR ---
MS RN CLOSING NOTES PATIENT CURRENTLY NOT IN ROOM. ALL NEEDS MET THROUGHOUT SHIFT. PT AGREES TO TAKE INVESTIGATIONAL DRUG AT SCHEDULED TIME. SAFETY MEASURES MAINTAINED. WILL ENDORSE CONTINUITY OF CARE TO ONCOMING SHIFT.
[2021-06-28] MEDS: MAG HYDROX/AL HYDROX/SIMETH 30 ML UDC PO PRN (20:13)
[2021-06-28 20:41] VITALS: BP 152/73
[2021-06-28] MEDS: ZOLPIDEM TARTRATE 10 MG TABLET PO PRN (21:46)
--- NOTE | 2021-06-28 22:23 | NUR ---
MS RN OPENING NOTES ENTERED PATIENT'S ROOM AT 1930. PATIENT WAS NOT PRESENT. ENTERED AGAIN AT 2014. PATIENT WAS PRESENT. PT IS AOx4. ABLE TO MAKE NEEDS KNOWN. ON RA AND TOLERATING WELL. NO SOB NOTED. NO S/SX OF RESPIRATORY DISTRESS NOTED. CLINICAL TRIAL PATIENT. NO IV ACCESS. SAFETY PRECAUTIONS IN PLACE: SIDERAILS UPx2, BED IN LOWEST, LOCKED POSITION, AND BRAKES ON. TABLE AND CALL LIGHT WITHIN REACH. WILL CONTINUE TO MONITOR.
--- NOTE | 2021-06-29 06:37 | NUR ---
MS RN CLOSING NOTES PATIENT NOT PRESENT IN ROOM. ALL NEEDS MET. PT KEPT CLEAN AND DRY. ADMINISTERD INVESTIGATIONAL MEDICATIONS PER MD ORDER. PT IS AOx4. ABLE TO MAKE NEEDS KNOWN. CLINICAL TRIAL PATIENT. NO IV ACCESS. SAFETY PRECAUTIONS IN PLACE: SIDERAILS UPx2, BED IN LOWEST, LOCKED POSITION, AND BRAKES ON. TABLE AND CALL LIGHT WITHIN REACH. WILL ENDORSE TO ONCOMING SHIFT.
[2021-06-29 08:00] VITALS: BP 149/85
[2021-06-29] MEDS: AMLODIPINE BESYLATE 5 MG TABLET PO SCH (08:37)
[2021-06-29] MEDS: INVEST MED Kar XT OR PLACEBO 50/20 MG PO SCH ×2 (09:52→22:00)
[2021-06-29 16:00] VITALS: BP 146/71
--- NOTE | 2021-06-29 18:27 | NUR ---
MS RN CLOSING NOTES PATIENT IS IN BED AWAKE. ALL NEEDS MET THROUGHOUT SHIFT. PT AGREES TO TAKE INVESTIGATIONAL DRUG AT SCHEDULED TIME. SAFETY MEASURES MAINTAINED. WILL ENDORSE CONTINUITY OF CARE TO ONCOMING SHIFT.
--- NOTE | 2021-06-29 19:28 | NUR ---
MS RN OPENING NOTES PATIENT'S STABLE ON ROOM AIR. PATIENT HAS NO IV ACCESS DUE TO CLINICAL TRIAL STATUS. PATIENT'S IN NO ACUTE DISTRESS AT THIS TIME. SAFETY MEASURES IN PLACE: BED LOCKED, BED ALARM ON, SIDE RAILS UPX2, AND CALL LIGHT WITHIN REACH OF THE PATIENT. WILL CONTINUE TO MONITOR THE PATIENT.
[2021-06-29 20:00] VITALS: BP 141/82
[2021-06-29] MEDS: ZOLPIDEM TARTRATE 10 MG TABLET PO PRN (22:01)
--- NOTE | 2021-06-30 06:58 | NUR ---
MS RN CLOSING NOTES PATIENT WAS LAST SEEN AWAKE IN BED RESTING. PATIENT'S ALERT AND ORIENTED X4. PATIENT'S STABLE ON ROOM AIR. PATIENT HAS NO IV ACCESS DUE TO CLINICAL TRIAL STATUS. PATIENT'S IN NO ACUTE DISTRESS AT THIS TIME. SAFETY MEASURES IN PLACE: BED LOCKED, SIDE RAILS UP X2, AND CALL LIGHT WITHIN REACH OF THE PATIENT. WILL ENDORSE CARE TO THE DAY SHIFT NURSE.
--- NOTE | 2021-06-30 07:30 | NUR ---
MS RN OPENING NOTES RECEIVED PATIENT AWAKE ON BED AND A/O X4. STABLE ON ROOM AIR. PATIENT HAS NO IV ACCESS DUE TO CLINICAL TRIAL STATUS. NOT IN ACUTE DISTRESS AT THIS TIME. SAFETY MEASURES IN PLACE: BED LOCKED, BED ALARM ON, SIDE RAILS UPX2, AND CALL LIGHT WITHIN REACH OF THE PATIENT. WILL CONTINUE TO MONITOR THE PATIENT
[2021-06-30 08:00] VITALS: BP 132/70
[2021-06-30] MEDS ORDERED: LORAZEPAM 1 MG TABLET ONE (08:30)
[2021-06-30] MEDS: AMLODIPINE BESYLATE 5 MG TABLET PO SCH (09:40)
[2021-06-30] MEDS: INVEST MED Kar XT OR PLACEBO 50/20 MG PO SCH ×2 (10:02→22:00)
[2021-06-30] MEDS ORDERED: LORAZEPAM 1 MG TABLET FOR AGITATION/ANXIETY PO PRN (13:00)
--- NOTE | 2021-06-30 19:30 | NUR ---
MS RN CLOSING NOTES PATIENT RESTING ON BED AND A/O X4. STABLE ON ROOM AIR. PATIENT HAS NO IV ACCESS DUE TO CLINICAL TRIAL STATUS. NOT IN ACUTE DISTRESS AT THIS TIME. SAFETY MEASURES IN PLACE: BED LOCKED, BED ALARM ON, SIDE RAILS UPX2, AND CALL LIGHT WITHIN REACH OF THE PATIENT. WILL ENDORSE TO NEXT SHIFT FOR JAS.
--- NOTE | 2021-06-30 19:38 | NUR ---
MS RN OPENING NOTES PATIENT'S STABLE ON ROOM AIR. PATIENT HAS NO IV ACCESS DUE TO CLINICAL TRIAL STATUS. PATIENT'S IN NO ACUTE DISTRESS AT THIS TIME. SAFETY MEASURES IN PLACE: BED LOCKED, SIDE RAILS UPX2, AND CALL LIGHT WITHIN REACH OF THE PATIENT. WILL CONTINUE TO MONITOR THE PATIENT.
[2021-06-30 20:00] VITALS: BP 132/72
[2021-06-30] MEDS: ZOLPIDEM TARTRATE 10 MG TABLET PO PRN (22:03)
--- NOTE | 2021-07-01 07:44 | NUR ---
MS/RN OPENING NOTES RECEIVED PATIENT ON BED AWAKE, ALERT AND ORIENTED X4. PATIENT IS ON ROOM AIR. PATIENT IN NO APPARENT RESPIRATORY DISTRESS NOTED. NO COMPLAINED OF PAIN NOTED AT THIS TIME. WILL CONTINUE TO MONITOR.
[2021-07-01 08:00] VITALS: BP 164/78
[2021-07-01] MEDS: AMLODIPINE BESYLATE 5 MG TABLET PO SCH (08:42)
[2021-07-01] MEDS: INVEST MED Kar XT OR PLACEBO 50/20 MG PO SCH ×2 (09:58→19:59)
[2021-07-01 16:00] VITALS: BP 155/79
--- NOTE | 2021-07-01 18:57 | NUR ---
MS/RN CLOSING NOTES PATIENT IS ON THE BED AT THIS TIME. AWAKE ALERT AND ORIENTED X4. PATIENT IS ON ROOM AIR. PATIENT IN NO APPARENT RESPIRATORY DISTRESS NOTED. NO COMPLAINED OF PAIN NOTED AT THIS TIME. ABLE TO MAKE NEEDS KNOWN. AMBULATORY. INVESTIGATIONAL DRUGS ADMINISTERED, NO ADVERSE EFFECTS NOTED, DENIES SI/HI. ALL NEEDS MET AND ATTENDED WELL. WILL ENDORSE TO SYSTEM SALES CONSULTANT FOR JAS.
--- NOTE | 2021-07-01 19:27 | NUR ---
MS RN OPENING NOTES RECEIVED PT IN BED, AWAKE. PT IS AOx4. ABLE TO MAKE NEEDS KNOWN. ON RA AND TOLERATING WELL. NO SOB NOTED. NO S/SX OF RESPIRATORY DISTRESS NOTED. NO IV ACCESS. CLINICAL TRIAL PATIENT. SAFETY PRECAUTIONS IN PLACE: BED IN LOWEST, LOCKED POSITION, BRAKES ON, SIDERAILS UPx2. TABLE AND CALL LIGHT WITHIN REACH. WILL CONTINUE TO MONITOR.
[2021-07-01] MEDS: ZOLPIDEM TARTRATE 10 MG TABLET PO PRN (19:59)
[2021-07-01 20:00] VITALS: BP 143/67
--- NOTE | 2021-07-02 06:40 | NUR ---
MS RN CLOSING NOTES PT IN BED, AWAKE. PT IS AOx4. ABLE TO MAKE NEEDS KNOWN. ON RA AND TOLERATING WELL. NO SOB NOTED. NO S/SX OF RESPIRATORY DISTRESS NOTED. NO IV ACCESS. CLINICAL TRIAL PATIENT. INVESTIGATIONAL MED ADMINISTERED. ALL NEEDS MET. PT KEPT CLEAN AND DRY. SAFETY PRECAUTIONS IN PLACE: BED IN LOWEST, LOCKED POSITION, BRAKES ON, SIDERAILS UPx2. TABLE AND CALL LIGHT WITHIN REACH. WILL ENDORSE TO ONCOMING SHIFT.
--- NOTE | 2021-07-02 07:42 | NUR ---
RN OPENING NOTE PT AWAKE IN BED RESTING. A/O X4 AND [place] SPEAKING. ON RA WITH NO SOB OR RESPIRATORY DISTRESS. NO ASTROBIOLOGIST. NO EDEMA. SELF AMBULATORY WITH BATHROOM PRIVILEGES. SKIN INTACT. REGULAR DIET. NO IV DUE TO STATUS CLINICAL TRIAL. LABS AND ORDERS REVIEWED. SAFETY MEASURES IN PLACE. SIDE RAILS RAISED. BED LOWERED. CALL LIGHT WITHIN REACH. WILL CONTINUE TO MONITOR.
[2021-07-02 08:00] VITALS: BP 156/64
[2021-07-02] MEDS: AMLODIPINE BESYLATE 5 MG TABLET PO SCH (08:56)
[2021-07-02] MEDS: INVEST MED Kar XT OR PLACEBO 50/20 MG PO SCH ×2 (10:00→20:16)
[2021-07-02 16:00] VITALS: BP 145/78
--- NOTE | 2021-07-02 18:00 | NUR ---
RN NOTE RECEIVED CALL FROM DR ZAMORA THAT PT TO BE DISCHARGED TOMORROW. CN AWARE. WILL CONTINUE TO MONITOR.
--- NOTE | 2021-07-02 18:14 | NUR ---
RN CLOSING NOTE PT AWAKE IN BED RESTING. A/O X4 AND CITIZEN OF [place] AND [place] SPEAKING. ON RA WITH NO SOB OR RESPIRATORY DISTRESS. NO LAB AIDE. NO EDEMA. SELF AMBULATORY WITH BATHROOM PRIVILEGES. SKIN INTACT. REGULAR DIET. NO IV DUE TO STATUS CLINICAL TRIAL. LABS AND ORDERS REVIEWED. SAFETY MEASURES IN PLACE. SIDE RAILS RAISED. BED LOWERED. CALL LIGHT WITHIN REACH. WILL GIVE REPORT TO NIGHT NURSE FOR JAS.
--- NOTE | 2021-07-02 19:00 | NUR ---
iN ROOM READING ALERT AND ORIENTED SMILING FRIENDLY
[2021-07-02 20:00] VITALS: BP 145/68
[2021-07-02] MEDS: ZOLPIDEM TARTRATE 10 MG TABLET PO PRN (20:42)
--- NOTE | 2021-07-03 06:30 | NUR ---
AWAKE AND ALERT ENJOYS CONVERSING AND TALKING ABOUT BOOKS AND AUTHORS GOOD NIGHT NO HALLUCINATIONS OR HEARING VOICES SPEECH CLEAR COOPERATIVE
--- NOTE | 2021-07-03 07:28 | NUR ---
RN OPENING NOTE- PT AWAKE IN HALLWAY, A/O X4 AND [place]IG[place] SPEAKING. ON RA WITH NO SOB OR RESPIRATORY DISTRESS. NO SKEIN DRIER. NO EDEMA. SELF AMBULATORY WITH BATHROOM PRIVILEGES. SKIN INTACT. REGULAR DIET. NO IV DUE TO STATUS CLINICAL TRIAL. LABS AND ORDERS REVIEWED. SAFETY MEASURES IN PLACE. SIDE RAILS RAISED. BED LOWERED. CALL LIGHT WITHIN REACH. WILL CONTINUE TO MONITOR.
[2021-07-03 08:48] VITALS: BP 146/70
[2021-07-03] MEDS: AMLODIPINE BESYLATE 5 MG TABLET PO SCH (08:48)
--- NOTE | 2021-07-03 10:44 | NUR ---
RN NOTE- PT DISCHARGED W DR MCDONALD OFFICE. PT IS ALERT ORIENTED TO PERSON PLACE TIME PURPOSE. DC INSTRUCTIONS REVIEWED. NEEDS ATTENDED. VALUABLES COLLECTED. DR MCDONALD STAFF AT UNIT TO TRANSPORT. DC DONE
== END 2021-07-03 10:45 | disposition home or self-care (01) | DRG 951 ==
LOC: GPS 14:14 → MED 06-04 13:59
PROVIDERS: ADMIT Psychiatry & Neurology Psychiatry; ATTEND Psychiatry & Neurology Psychiatry
DX: Z00.6 Encounter for examination for normal comparison and control in clinical research program (principal); F20.0 Paranoid schizophrenia; Z79.899 Other long term (current) drug therapy; G47.00 Insomnia, unspecified; F17.210 Nicotine dependence, cigarettes, uncomplicated; Z81.8 Family history of other mental and behavioral disorders; Z20.822 Contact with and (suspected) exposure to COVID-19
CPT/HCPCS: G0378

== ENCOUNTER 2023-06-06 14:53 | Inpatient (IN) | payer OTHER ==
[~2023-06-06] VITALS: Ht 188 cm; Wt 99.8 kg
[2023-06-06 16:00] VITALS: BP 141/67; TEMP 98.1; O2SAT 98
[2023-06-06] MEDS ORDERED: RISP0.5T65 PO (16:24)
[2023-06-06] MEDS ORDERED: RISP1TAB97 PO (16:24)
[2023-06-06] MEDS ORDERED: MAGN400O6 PO (16:24)
[2023-06-06] MEDS ORDERED: ACET-2605 PO (16:24)
[2023-06-06] MEDS ORDERED: IBUP-1955 PO (16:24)
[2023-06-06] MEDS ORDERED: LORA-259 PO (16:24)
[2023-06-06] MEDS ORDERED: MAG-5 PO (16:24)
[2023-06-06] MEDS ORDERED: IBUPROFEN 600 MG TABLET PO PRN (16:30)
[2023-06-06] MEDS ORDERED: MAG HYDROX/AL HYDROX/SIMETH 30 ML UDC PO PRN ×2 (16:30)
[2023-06-06] MEDS ORDERED: LORAZEPAM 1 MG TABLET FOR AGITATION PO PRN (16:30)
[2023-06-06] MEDS ORDERED: ACETAMINOPHEN ES 500 MG TABLET PO PRN ×2 (16:30)
[2023-06-06] MEDS ORDERED: MAGNESIUM HYDROXIDE 30 ML UDC PO PRN ×2 (16:30)
[2023-06-06] MEDS ORDERED: ZOLP10TA2 PO (16:30)
[2023-06-06] MEDS ORDERED: IBUPROFEN 200 MG TABLET PO PRN (16:30)
[2023-06-06 20:23] VITALS: BP 145/77; TEMP 99; O2SAT 100
[2023-06-06] MEDS: ZOLPIDEM TARTRATE 10 MG TABLET PO PRN (20:45)
[2023-06-06] MEDS: RISPERIDONE PO SCH (21:34)
[2023-06-07 08:00] VITALS: BP 145/70; TEMP 98.2; O2SAT 100
[2023-06-07 16:00] VITALS: BP 123/64; TEMP 98.6; O2SAT 100
[2023-06-07 20:17] VITALS: BP 156/74; TEMP 98.2; O2SAT 100
[2023-06-07] MEDS: RISPERIDONE PO SCH (21:17)
[2023-06-07] MEDS: ZOLPIDEM TARTRATE 10 MG TABLET PO PRN (21:17)
[2023-06-08 08:00] VITALS: BP 152/79; TEMP 97.9; O2SAT 100
[2023-06-08 16:00] VITALS: BP 120/63; TEMP 97.9; O2SAT 100
[2023-06-08 18:05] VITALS: BP 150/71; TEMP 97.3; O2SAT 100
[2023-06-08 20:00] VITALS: BP 158/65; TEMP 97.6; O2SAT 100
[2023-06-08] MEDS: RISPERIDONE PO SCH (21:41)
[2023-06-08] MEDS: ZOLPIDEM TARTRATE 10 MG TABLET PO PRN (21:41)
[2023-06-09 07:00] VITALS: BP 117/76; TEMP 98; O2SAT 99
[2023-06-09 20:00] VITALS: BP 163/72; TEMP 97.3; O2SAT 100
[2023-06-09] MEDS: RISPERIDONE PO SCH ×2 (22:00→22:40)
[2023-06-10 07:30] VITALS: BP 150/90; TEMP 97.7; O2SAT 100
[2023-06-10 20:00] VITALS: BP 152/78; TEMP 97.8; O2SAT 100
[2023-06-10] MEDS: RISPERIDONE PO SCH (22:00)
[2023-06-11 08:00] VITALS: BP 160/84; TEMP 98.2; O2SAT 98
[2023-06-11 20:00] VITALS: BP 133/89; TEMP 97.7; O2SAT 98
[2023-06-11] MEDS: RISPERIDONE PO SCH (21:50)
[2023-06-12 08:00] VITALS: BP 144/70; TEMP 97.7; O2SAT 100
[2023-06-12 20:00] VITALS: BP 129/78; TEMP 99.1; O2SAT 100
[2023-06-12] MEDS: RISPERIDONE PO SCH (21:34)
[2023-06-13 08:00] VITALS: BP 153/79; TEMP 98.4; O2SAT 98
[2023-06-13 20:00] VITALS: BP_SYST 151; BP_SYST 157; BP_DIAS 77; TEMP 98.8; O2SAT 100
[2023-06-13] MEDS: RISPERIDONE PO SCH (22:52)
[2023-06-14 07:00] VITALS: BP 143/58; TEMP 98.4; O2SAT 100
[2023-06-14 16:00] VITALS: BP 148/75; TEMP 98.1; O2SAT 100
[2023-06-14 20:00] VITALS: BP 132/52; TEMP 97.7; O2SAT 99
[2023-06-15 19:00] VITALS: BP 157/81; TEMP 98.2; O2SAT 100
[2023-06-15 20:00] VITALS: BP 157/81; TEMP 98.2; O2SAT 100
[2023-06-16 07:30] VITALS: BP 152/75; TEMP 97.5; O2SAT 99
[2023-06-16 20:00] VITALS: BP 153/76; TEMP 98.1; O2SAT 100
[2023-06-16 20:48] VITALS: BP 153/76; TEMP 98.1; O2SAT 100
[2023-06-17 20:00] VITALS: BP_SYST 157; BP_DIAS 81; BP_DIAS 89; TEMP 97.9; O2SAT 99
[2023-06-18 20:00] VITALS: BP 158/72; TEMP 98.2; O2SAT 99
[2023-06-19 07:00] VITALS: BP 153/92; TEMP 98.1; O2SAT 99
[2023-06-19 21:32] VITALS: BP 147/76; TEMP 98.1; O2SAT 100
[2023-06-20 20:00] VITALS: BP 139/78; TEMP 98.8; O2SAT 100
[2023-06-21] MEDS ORDERED: LORAZEPAM 1 MG TABLET FOR AGITATION PO PRN (13:00)
[2023-06-21] MEDS ORDERED: ZOLPIDEM TARTRATE 10 MG TABLET PO PRN (13:00)
[2023-06-21 16:00] VITALS: BP 142/71; TEMP 98.6; O2SAT 99
[2023-06-22] MEDS: INVEST MED CVL-231-2002 PO SCH (10:00)
[2023-06-22 16:00] VITALS: BP 143/70; TEMP 98.4; O2SAT 100
[2023-06-22 20:00] VITALS: BP 154/79; TEMP 98.2; O2SAT 100
[2023-06-23] MEDS: INVEST MED CVL-231-2002 PO SCH ×2 (09:01→09:19)
[2023-06-23 16:00] VITALS: BP 149/71; TEMP 97.4; O2SAT 100
[2023-06-23 20:00] VITALS: BP 176/75; TEMP 98.2; O2SAT 100
[2023-06-23 22:00] VITALS: BP 122/56; TEMP 98.2; O2SAT 100
[2023-06-24 08:00] VITALS: BP 149/75; TEMP 97.9; O2SAT 100
[2023-06-24] MEDS: INVEST MED CVL-231-2002 PO SCH (09:36)
[2023-06-24 16:00] VITALS: BP 128/54; TEMP 98.4; O2SAT 100
[2023-06-24 20:00] VITALS: BP 146/72; TEMP 98.2; O2SAT 100
[2023-06-25 08:00] VITALS: BP 155/71; TEMP 98.1; O2SAT 99
[2023-06-25] MEDS: INVEST MED CVL-231-2002 PO SCH (09:38)
[2023-06-25 20:00] VITALS: BP 146/66; TEMP 97.7; O2SAT 100
[2023-06-26] MEDS: INVEST MED CVL-231-2002 PO SCH (10:01)
[2023-06-26 20:00] VITALS: BP 154/78; TEMP 98.1; O2SAT 100
[2023-06-27] MEDS: INVEST MED CVL-231-2002 PO SCH (10:03)
[2023-06-28 07:30] VITALS: BP 155/68; TEMP 97.5; O2SAT 95
[2023-06-28] MEDS: INVEST MED CVL-231-2002 PO SCH (10:24)
[2023-06-28 16:00] VITALS: BP 157/83; TEMP 97.7; O2SAT 96
[2023-06-28 20:00] VITALS: BP 151/57; TEMP 97.9; O2SAT 100
[2023-06-29] MEDS: INVEST MED CVL-231-2002 PO SCH (09:42)
[2023-06-29 16:00] VITALS: BP 150/74; TEMP 97.7; O2SAT 100
[2023-06-29 20:00] VITALS: BP 158/82; TEMP 99; O2SAT 98
[2023-06-30 08:00] VITALS: BP 160/77; TEMP 97.3; O2SAT 98
[2023-06-30] MEDS: INVEST MED CVL-231-2002 PO SCH (09:50)
[2023-07-01] MEDS: INVEST MED CVL-231-2002 PO SCH (10:00)
[2023-07-02] MEDS: INVEST MED CVL-231-2002 PO SCH (09:45)
[2023-07-02 20:00] VITALS: BP 181/88; TEMP 98.2; O2SAT 99
[2023-07-02] MEDS: ZOLPIDEM TARTRATE 10 MG TABLET PO PRN (21:32)
[2023-07-03 08:00] VITALS: BP 170/88; TEMP 98.8; O2SAT 100
[2023-07-03] MEDS: INVEST MED CVL-231-2002 PO SCH (09:58)
[2023-07-03] MEDS: LORAZEPAM 1 MG TABLET FOR AGITATION PO PRN (14:12)
[2023-07-03 16:00] VITALS: BP 160/85; TEMP 98; O2SAT 98
[2023-07-03 20:00] VITALS: BP 155/82; TEMP 98.1; O2SAT 99
[2023-07-03] MEDS: ZOLPIDEM TARTRATE 10 MG TABLET PO PRN (20:14)
[2023-07-04] MEDS: LORAZEPAM 1 MG TABLET FOR AGITATION PO PRN (09:32)
[2023-07-04] MEDS: INVEST MED CVL-231-2002 PO SCH (10:15)
[2023-07-04 20:00] VITALS: BP 156/89; TEMP 98.6; O2SAT 99
[2023-07-05 08:00] VITALS: BP 137/71; TEMP 97.5; O2SAT 99
[2023-07-05] MEDS: INVEST MED CVL-231-2002 PO SCH (10:07)
[2023-07-05] MEDS: ZOLPIDEM TARTRATE 10 MG TABLET PO PRN (20:07)
[2023-07-06] MEDS: LORAZEPAM 1 MG TABLET FOR AGITATION PO PRN (06:12)
[2023-07-06 08:05] VITALS: BP 138/80; TEMP 98.6; O2SAT 99
[2023-07-06] MEDS: INVEST MED CVL-231-2002 PO SCH (09:55)
[2023-07-06] MEDS: ZOLPIDEM TARTRATE 10 MG TABLET PO PRN (19:45)
[2023-07-06 20:00] VITALS: BP 149/82; TEMP 97.6; O2SAT 100
[2023-07-07] MEDS: LORAZEPAM 1 MG TABLET FOR AGITATION PO PRN (05:30)
[2023-07-07] MEDS: INVEST MED CVL-231-2002 PO SCH (10:06)
[2023-07-07] MEDS: ZOLPIDEM TARTRATE 10 MG TABLET PO PRN (20:10)
[2023-07-07 22:27] VITALS: BP 130/74; TEMP 98.2; O2SAT 100
[2023-07-08] MEDS: INVEST MED CVL-231-2002 PO SCH (10:01)
[2023-07-08] MEDS: ZOLPIDEM TARTRATE 10 MG TABLET PO PRN (20:06)
[2023-07-09] MEDS: INVEST MED CVL-231-2002 PO SCH (10:01)
[2023-07-09 20:00] VITALS: BP 157/73; TEMP 98.1; O2SAT 96
[2023-07-09] MEDS: ZOLPIDEM TARTRATE 10 MG TABLET PO PRN ×2 (20:44→20:47)
[2023-07-10] MEDS: INVEST MED CVL-231-2002 PO SCH (10:01)
[2023-07-10] MEDS: ZOLPIDEM TARTRATE 10 MG TABLET PO PRN (19:49)
[2023-07-10 20:00] VITALS: BP 142/87; TEMP 97.9; O2SAT 100
[2023-07-11 08:00] VITALS: BP 138/64; TEMP 97.7; O2SAT 98
[2023-07-11] MEDS: INVEST MED CVL-231-2002 PO SCH (10:02)
[2023-07-11] MEDS: ZOLPIDEM TARTRATE 10 MG TABLET PO PRN (19:34)
[2023-07-11 20:00] VITALS: BP 139/70; TEMP 97.9; O2SAT 100
[2023-07-12] MEDS: INVEST MED CVL-231-2002 PO SCH (11:14)
[2023-07-12] MEDS ORDERED: LORAZEPAM 1 MG TABLET FOR AGITATION PO PRN (13:00)
[2023-07-12 16:42] VITALS: BP 168/68; TEMP 98.6; O2SAT 99
[2023-07-12 20:00] VITALS: BP 155/68; TEMP 98.1; O2SAT 100
[2023-07-12] MEDS: ZOLPIDEM TARTRATE 10 MG TABLET PO PRN (20:19)
[2023-07-13 10:00] VITALS: BP 133/65; TEMP 98.2; O2SAT 96
[2023-07-13] MEDS: INVEST MED CVL-231-2002 PO SCH (10:27)
[2023-07-13 16:00] VITALS: BP 133/65; TEMP 98.6; O2SAT 96
[2023-07-13] MEDS: ZOLPIDEM TARTRATE 10 MG TABLET PO PRN (20:19)
[2023-07-14] MEDS: INVEST MED CVL-231-2002 PO SCH (10:17)
[2023-07-14 20:00] VITALS: BP 120/75; TEMP 98.8; O2SAT 97
[2023-07-14] MEDS: ZOLPIDEM TARTRATE 10 MG TABLET PO PRN (20:00)
[2023-07-15] MEDS: INVEST MED CVL-231-2002 PO SCH (10:14)
[2023-07-15] MEDS: ZOLPIDEM TARTRATE 10 MG TABLET PO PRN (20:46)
[2023-07-16] MEDS: INVEST MED CVL-231-2002 PO SCH (09:50)
[2023-07-16 20:00] VITALS: BP 158/68; TEMP 97.7; O2SAT 100
[2023-07-16] MEDS: ZOLPIDEM TARTRATE 10 MG TABLET PO PRN (20:28)
[2023-07-17 07:00] VITALS: BP 151/74; TEMP 97.7; O2SAT 100
[2023-07-17] MEDS: INVEST MED CVL-231-2002 PO SCH (09:28)
[2023-07-17 16:00] VITALS: BP 165/76; TEMP 98.4; O2SAT 100
[2023-07-17 20:00] VITALS: BP 144/59; TEMP 98.4; O2SAT 100
[2023-07-17] MEDS: ZOLPIDEM TARTRATE 10 MG TABLET PO PRN (20:27)
[2023-07-18] MEDS: INVEST MED CVL-231-2002 PO SCH (10:03)
[2023-07-18] MEDS: ZOLPIDEM TARTRATE 10 MG TABLET PO PRN (20:19)
[2023-07-19 08:00] VITALS: BP 158/59; TEMP 97.9; O2SAT 99
[2023-07-19] MEDS: INVEST MED CVL-231-2002 PO SCH (10:26)
[2023-07-19] MEDS ORDERED: LORAZEPAM 1 MG TABLET FOR AGITATION PO PRN (13:00)
[2023-07-19] MEDS: ZOLPIDEM TARTRATE 10 MG TABLET PO PRN (20:36)
[2023-07-19 21:39] VITALS: BP 144/61; TEMP 98.4; O2SAT 100
[2023-07-20] MEDS: INVEST MED CVL-231-2002 PO SCH (09:52)
[2023-07-20] MEDS: ZOLPIDEM TARTRATE 10 MG TABLET PO PRN (20:03)
[2023-07-21] MEDS: INVEST MED CVL-231-2002 PO SCH (10:07)
[2023-07-21 20:00] VITALS: BP 127/68; O2SAT 100
[2023-07-21] MEDS: ZOLPIDEM TARTRATE 10 MG TABLET PO PRN (20:33)
[2023-07-22] MEDS: INVEST MED CVL-231-2002 PO SCH (10:22)
[2023-07-22] MEDS: ZOLPIDEM TARTRATE 10 MG TABLET PO PRN (20:57)
[2023-07-23] MEDS: INVEST MED CVL-231-2002 PO SCH (09:58)
[2023-07-23 20:00] VITALS: BP 146/58; TEMP 97.9; O2SAT 100
[2023-07-23] MEDS: ZOLPIDEM TARTRATE 10 MG TABLET PO PRN (22:46)
[2023-07-24] MEDS: INVEST MED CVL-231-2002 PO SCH (09:57)
[2023-07-24 20:00] VITALS: BP 127/77; TEMP 97.7; O2SAT 97
[2023-07-24] MEDS: ZOLPIDEM TARTRATE 10 MG TABLET PO PRN (20:15)
[2023-07-25] MEDS: INVEST MED CVL-231-2002 PO SCH (10:00)
[2023-07-25 20:00] VITALS: BP 153/76; TEMP 99; O2SAT 100
[2023-07-25] MEDS: ZOLPIDEM TARTRATE 10 MG TABLET PO PRN (20:05)
[2023-07-26] MEDS: INVEST MED CVL-231-2002 PO SCH (10:33)
[2023-07-26] MEDS ORDERED: LORAZEPAM 1 MG TABLET FOR AGITATION PO PRN (13:00)
[2023-07-26 16:00] VITALS: BP 166/64; TEMP 98.6; O2SAT 99
[2023-07-26] MEDS: ZOLPIDEM TARTRATE 10 MG TABLET PO PRN (20:11)
[2023-07-27] MEDS: INVEST MED CVL-231-2002 PO SCH (10:10)
[2023-07-27] MEDS: ZOLPIDEM TARTRATE 10 MG TABLET PO PRN (20:09)
[2023-07-27 20:30] VITALS: BP 138/62; TEMP 97.7; O2SAT 97
[2023-07-28 07:00] VITALS: BP 136/60; TEMP 97.4; O2SAT 98
[2023-07-28] MEDS: INVEST MED CVL-231-2002 PO SCH (10:11)
[2023-07-28 20:00] VITALS: BP 146/69; TEMP 97.8; O2SAT 100
[2023-07-28] MEDS: ZOLPIDEM TARTRATE 10 MG TABLET PO PRN (20:06)
[2023-07-29] MEDS: INVEST MED CVL-231-2002 PO SCH (10:02)
[2023-07-29 20:00] VITALS: BP 146/63; TEMP 97.6; O2SAT 100
[2023-07-29] MEDS: ZOLPIDEM TARTRATE 10 MG TABLET PO PRN (20:03)
[2023-07-30] MEDS: INVEST MED CVL-231-2002 PO SCH (11:31)
[2023-07-30 20:00] VITALS: BP 152/61; TEMP 97.5; O2SAT 99
[2023-07-30] MEDS: ZOLPIDEM TARTRATE 10 MG TABLET PO PRN (20:11)
[2023-07-31] MEDS: INVEST MED CVL-231-2002 PO SCH (09:55)
[2023-07-31 20:00] VITALS: BP 135/73; TEMP 98.1; O2SAT 97
[2023-07-31] MEDS: ZOLPIDEM TARTRATE 10 MG TABLET PO PRN (20:19)
[2023-08-01] MEDS: INVEST MED CVL-231-2002 PO SCH (10:12)
[2023-08-01 20:00] VITALS: BP 148/76; TEMP 97.3; O2SAT 98
[2023-08-01] MEDS: ZOLPIDEM TARTRATE 10 MG TABLET PO PRN (20:16)
[2023-08-02 08:00] VITALS: BP 164/80; TEMP 97.2; O2SAT 100
[2023-08-02] MEDS: INVEST MED CVL-231-2002 PO SCH (10:08)
[2023-08-02] MEDS: ZOLPIDEM TARTRATE 10 MG TABLET PO PRN (19:51)
[2023-08-03] MEDS: INVEST MED CVL-231-2002 PO SCH (10:04)
[2023-08-03] MEDS ORDERED: LORAZEPAM 1 MG TABLET FOR AGITATION PO PRN (13:00)
[2023-08-03 20:00] VITALS: BP_SYST 151; BP_SYST 159; BP_DIAS 71; TEMP 98.3; O2SAT 100
[2023-08-03] MEDS: ZOLPIDEM TARTRATE 10 MG TABLET PO PRN (20:17)
[2023-08-04] MEDS: INVEST MED CVL-231-2002 PO SCH (09:56)
[2023-08-04 20:00] VITALS: BP 155/75; TEMP 97.9; O2SAT 100
[2023-08-04] MEDS: ZOLPIDEM TARTRATE 10 MG TABLET PO PRN (20:29)
[2023-08-05] MEDS: INVEST MED CVL-231-2002 PO SCH (09:04)
== END 2023-08-05 10:30 | disposition home or self-care (01) | DRG 951 ==
LOC: GPS 14:53 → MED 06-08 17:14
PROVIDERS: ADMIT Psychiatry & Neurology Psychiatry; ATTEND Psychiatry & Neurology Psychiatry
DX: Z00.6 Encounter for examination for normal comparison and control in clinical research program (principal); F20.0 Paranoid schizophrenia; Z79.899 Other long term (current) drug therapy; F17.210 Nicotine dependence, cigarettes, uncomplicated; Z81.8 Family history of other mental and behavioral disorders
CPT/HCPCS: G0378

== ENCOUNTER 2025-01-23 10:11 | Inpatient (IN) | payer OTHER ==
[~2025-01-23] VITALS: Ht 188 cm; Wt 102.4 kg
[~2025-01-23 10:11] MED LIST changes: +ACET-2605 PO; -DIPH50CA37 PO; +IBUP-1955 PO; +LORA-259 PO; +MAG-5 PO; +MAGN400O6 PO; -MIRT-121 PO; +RISP0.5T65 PO; -RISP1TAB7 PO; +RISP1TAB97 PO; +ZOLP10TA2 PO
[2025-01-23 16:00] VITALS: BP 162/63; TEMP 97.3; O2SAT 99
[2025-01-23] MEDS ORDERED: MAGNESIUM HYDROXIDE 30 ML UDC PO PRN (16:00)
[2025-01-23] MEDS ORDERED: MAG HYDROX/AL HYDROX/SIMETH 30 ML UDC PO PRN (16:00)
[2025-01-23] MEDS ORDERED: IBUPROFEN 200 MG TABLET PO PRN (16:00)
[2025-01-23] MEDS ORDERED: ACETAMINOPHEN ES 500 MG TABLET PO PRN (16:00)
[2025-01-23] MEDS ORDERED: LORAZEPAM 1 MG TABLET FOR AGITATION PO PRN (16:00)
[2025-01-23 20:00] VITALS: BP 146/56; TEMP 97.6; O2SAT 99
[2025-01-23] MEDS: MIRTAZAPINE 15 MG PO SCH (21:01)
[2025-01-23] MEDS: HOME MED MISCELLANEOUS (RISPERIDONE 1MG TABLET) PO SCH (21:01)
[2025-01-23] MEDS ORDERED: ZOLPIDEM TARTRATE 10 MG TABLET PO PRN (22:00)
[2025-01-24 08:00] VITALS: BP 143/61; TEMP 97.5; O2SAT 99
[2025-01-24 20:28] VITALS: BP 139/62; TEMP 97.9; O2SAT 99
[2025-01-25 08:00] VITALS: BP 126/74; TEMP 97.8; O2SAT 99
[2025-01-25 16:00] VITALS: BP 124/77; TEMP 97.9; O2SAT 99
[2025-01-25 20:59] VITALS: BP 124/55; TEMP 98.2; O2SAT 99
[2025-01-26 20:00] VITALS: BP 145/57; TEMP 97.9; O2SAT 100
[2025-01-27 08:00] VITALS: BP 144/60; TEMP 98; O2SAT 100
[2025-01-27 16:00] VITALS: BP 157/53; TEMP 98.2; O2SAT 100
[2025-01-27 20:00] VITALS: BP 130/58; TEMP 98.4; O2SAT 100
[2025-01-28 08:50] VITALS: BP 152/69; TEMP 98.2; O2SAT 100
[2025-01-28 16:00] VITALS: BP 154/66; TEMP 98.2; O2SAT 99
[2025-01-28 20:00] VITALS: BP 148/68; TEMP 98.1; O2SAT 99
[2025-01-29 08:30] VITALS: BP 141/53; TEMP 97.9; O2SAT 97
[2025-01-29 16:00] VITALS: BP 148/52; TEMP 97.3; O2SAT 100
[2025-01-29 20:00] VITALS: BP 137/64; TEMP 98.1; O2SAT 100
[2025-01-30 09:30] VITALS: BP 151/75; TEMP 97.9; O2SAT 98
[2025-01-30 20:00] VITALS: BP 150/56; TEMP 98.1; O2SAT 98
[2025-01-31 08:00] VITALS: BP 159/61; TEMP 98; O2SAT 96
[2025-01-31 16:00] VITALS: BP 143/55; TEMP 98.6; O2SAT 100
[2025-01-31 20:00] VITALS: BP 148/79; TEMP 98.1; O2SAT 100
[2025-02-01 09:00] VITALS: BP 159/57; TEMP 98.2; O2SAT 100
[2025-02-01 16:00] VITALS: BP 163/79; TEMP 97.9; O2SAT 98
[2025-02-01 20:00] VITALS: BP 151/77; TEMP 98.7; O2SAT 99
[2025-02-02 20:00] VITALS: BP 145/66; TEMP 98.3; O2SAT 100
[2025-02-03 08:00] VITALS: BP 151/66; TEMP 98.2; O2SAT 100
[2025-02-03 16:00] VITALS: BP 148/80; TEMP 97.5; O2SAT 100
[2025-02-03 20:00] VITALS: BP 146/78; TEMP 98.1; O2SAT 100
[2025-02-04 08:00] VITALS: BP 139/69; TEMP 97.3; O2SAT 99
[2025-02-04 16:00] VITALS: BP 167/68; TEMP 98.2
[2025-02-04 20:00] VITALS: BP 132/43; O2SAT 99
[2025-02-05 08:00] VITALS: BP 118/80; TEMP 98.2; O2SAT 99
[2025-02-05 16:00] VITALS: BP 154/74; TEMP 98.2; O2SAT 99
[2025-02-05 20:00] VITALS: BP 150/63; TEMP 98.3; O2SAT 96
[2025-02-06 08:00] VITALS: BP 151/61; TEMP 98.2; O2SAT 99
[2025-02-06 20:49] VITALS: BP 147/50; TEMP 98.3; O2SAT 99
[2025-02-07 08:00] VITALS: BP 150/60; TEMP 97.2; O2SAT 99
[2025-02-07] MEDS ORDERED: ZOLPIDEM TARTRATE 10 MG TABLET PO PRN (13:00)
[2025-02-07] MEDS ORDERED: LORAZEPAM 1 MG TABLET FOR AGITATION PO PRN (13:00)
[2025-02-07 16:00] VITALS: BP 152/58; TEMP 98; O2SAT 99
[2025-02-07 20:00] VITALS: BP 150/51; TEMP 98.6; O2SAT 97
[2025-02-07] MEDS: INVEST MED OTSUKA 382-201-00035 PO SCH (20:23)
[2025-02-08 08:00] VITALS: BP 139/73; TEMP 98.4; O2SAT 99
[2025-02-08 16:00] VITALS: BP 130/74; TEMP 98.2; O2SAT 100
[2025-02-08 20:00] VITALS: BP 153/57; TEMP 98.1; O2SAT 100
[2025-02-09 08:00] VITALS: BP 148/81; TEMP 97.7; O2SAT 99
[2025-02-09 16:00] VITALS: BP 145/60; TEMP 98.6; O2SAT 100
[2025-02-09 20:00] VITALS: BP 147/62; TEMP 98.2; O2SAT 100
[2025-02-10 08:00] VITALS: BP 142/79; TEMP 98.1; O2SAT 100
[2025-02-10 16:00] VITALS: BP 132/53; TEMP 98.1; O2SAT 99
[2025-02-10 20:00] VITALS: BP 141/62; TEMP 98.6; O2SAT 100
[2025-02-11 08:45] VITALS: BP 132/74; TEMP 97.8; O2SAT 98
[2025-02-11 21:39] VITALS: BP 150/55; TEMP 98.2; O2SAT 99
[2025-02-12 08:00] VITALS: BP 153/81; TEMP 97.7; O2SAT 99
[2025-02-12 16:00] VITALS: BP 121/52; TEMP 97.6; O2SAT 97
[2025-02-12 22:31] VITALS: BP 135/57; TEMP 97.7; O2SAT 99
[2025-02-13 08:00] VITALS: BP 134/71; TEMP 97.9; O2SAT 99
[2025-02-13 16:00] VITALS: BP 157/70; TEMP 97.5; O2SAT 99
[2025-02-13 20:00] VITALS: BP 153/55; TEMP 97.7; O2SAT 100
[2025-02-14 08:00] VITALS: BP 146/75; TEMP 97.7; O2SAT 99
[2025-02-14] MEDS ORDERED: ZOLPIDEM TARTRATE 10 MG TABLET PO PRN (13:00)
[2025-02-14] MEDS ORDERED: LORAZEPAM 1 MG TABLET FOR AGITATION PO PRN (13:00)
[2025-02-14 16:00] VITALS: BP 145/76; TEMP 97.7; O2SAT 99
[2025-02-14 20:00] VITALS: BP 138/78; TEMP 97.9; O2SAT 100
[2025-02-15 08:00] VITALS: BP 120/81; TEMP 97.7; O2SAT 100
[2025-02-15 16:00] VITALS: BP 155/77; TEMP 98.1; O2SAT 99
[2025-02-15 19:57] VITALS: BP 113/76; TEMP 98.2; O2SAT 100
[2025-02-16 08:00] VITALS: BP 126/85; TEMP 97.5; O2SAT 100
[2025-02-16 16:00] VITALS: BP 126/90; TEMP 98.1; O2SAT 100
[2025-02-16 20:00] VITALS: BP 120/84; TEMP 98.4; O2SAT 100
[2025-02-17 08:47] VITALS: BP 136/81; TEMP 98; O2SAT 100
[2025-02-17 16:00] VITALS: BP 150/80; TEMP 98.2; O2SAT 100
[2025-02-17 20:00] VITALS: BP 154/51; TEMP 97.7; O2SAT 98
[2025-02-18 08:00] VITALS: BP 122/85; TEMP 97.7; O2SAT 98
[2025-02-18 16:00] VITALS: BP 143/62; TEMP 97.7; O2SAT 98
[2025-02-18 20:00] VITALS: BP 128/54; TEMP 98.2; O2SAT 98
[2025-02-19 08:00] VITALS: BP 166/83; TEMP 97.9; O2SAT 99
[2025-02-19 16:00] VITALS: BP 150/57; TEMP 97.3; O2SAT 100
[2025-02-19 20:00] VITALS: BP 125/58; TEMP 97.9; O2SAT 98
[2025-02-20 08:15] VITALS: BP 148/86; TEMP 98.1; O2SAT 100
[2025-02-20 20:00] VITALS: BP 139/60; TEMP 98.1; O2SAT 98
[2025-02-21 08:38] VITALS: BP 132/66; TEMP 98.2; O2SAT 100
[2025-02-21] MEDS ORDERED: LORAZEPAM 1 MG TABLET FOR AGITATION PO PRN (13:00)
[2025-02-21] MEDS ORDERED: ZOLPIDEM TARTRATE 10 MG TABLET PO PRN (13:00)
[2025-02-21 20:00] VITALS: BP 150/61; TEMP 98.5; O2SAT 97
[2025-02-22 08:30] VITALS: BP 161/87; TEMP 97.5; O2SAT 98
[2025-02-22 16:00] VITALS: BP 148/66; TEMP 98.6; O2SAT 100
[2025-02-22 20:00] VITALS: BP 144/75; TEMP 97.4; O2SAT 100
[2025-02-23 08:00] VITALS: BP 143/80; TEMP 97.5; O2SAT 100
[2025-02-23 16:00] VITALS: BP 131/83; TEMP 98.2; O2SAT 100
[2025-02-23 20:34] VITALS: BP 123/46; TEMP 97.5; O2SAT 99
[2025-02-24 09:31] VITALS: BP 154/81; TEMP 97.7; O2SAT 100
[2025-02-24 16:00] VITALS: BP 138/80; TEMP 98.1; O2SAT 98
[2025-02-24 20:00] VITALS: BP 143/60; TEMP 98.1; O2SAT 99
[2025-02-25 08:00] VITALS: BP 148/91; TEMP 97.7; O2SAT 100
[2025-02-25 16:00] VITALS: BP 150/77; TEMP 97.7; O2SAT 98
[2025-02-25 20:00] VITALS: BP 139/53; TEMP 97.7; O2SAT 99
[2025-02-26 08:52] VITALS: BP 170/90; TEMP 97.9; O2SAT 99
[2025-02-26 20:00] VITALS: BP 135/55; TEMP 97.5; O2SAT 100
[2025-02-27 08:00] VITALS: BP 117/57; TEMP 97.5; O2SAT 100
[2025-02-27 16:00] VITALS: BP 161/76; TEMP 98.2; O2SAT 100
[2025-02-27 20:00] VITALS: BP 116/53; TEMP 98.2; O2SAT 97
[2025-02-28 08:15] VITALS: BP 145/53; TEMP 97.1; O2SAT 98
[2025-02-28] MEDS ORDERED: LORAZEPAM 1 MG TABLET FOR AGITATION PO PRN (13:00)
[2025-02-28] MEDS ORDERED: ZOLPIDEM TARTRATE 10 MG TABLET PO PRN (13:00)
[2025-02-28 16:00] VITALS: BP 153/89; TEMP 98.4; O2SAT 98
[2025-02-28 20:00] VITALS: BP 153/77; TEMP 98.2; O2SAT 100
[2025-03-01 08:15] VITALS: BP 133/55; TEMP 97.9; O2SAT 98
[2025-03-01 18:00] VITALS: BP 137/68; TEMP 97.7; O2SAT 98
[2025-03-01 20:00] VITALS: BP 144/74; TEMP 98.5; O2SAT 100
[2025-03-02 10:00] VITALS: BP 123/55; TEMP 97.5; O2SAT 98
[2025-03-02 20:00] VITALS: BP 148/54; TEMP 97.9; O2SAT 100
[2025-03-03 09:00] VITALS: BP 130/55; TEMP 97.5; O2SAT 99
[2025-03-03 16:00] VITALS: BP 151/64; TEMP 97.3; O2SAT 98
[2025-03-03 20:00] VITALS: BP 127/60; TEMP 98.1; O2SAT 99
[2025-03-04 08:00] VITALS: BP 148/61; TEMP 97.9; O2SAT 99
[2025-03-04 16:00] VITALS: BP 154/48; TEMP 98.1; O2SAT 100
[2025-03-04 20:00] VITALS: BP 146/60; TEMP 98.6; O2SAT 100
[2025-03-05 09:24] VITALS: BP 144/65; TEMP 97.3; O2SAT 100
[2025-03-05 20:00] VITALS: BP 128/54; TEMP 97.7; O2SAT 99
[2025-03-06 08:00] VITALS: BP 154/58; TEMP 97.9; O2SAT 98
[2025-03-06 20:00] VITALS: BP 117/71; TEMP 97.7; O2SAT 99
[2025-03-07 08:00] VITALS: BP 107/81; TEMP 97.7; O2SAT 98
[2025-03-07 09:30] VITALS: BP 142/62; TEMP 97.6; O2SAT 100
[2025-03-07] MEDS ORDERED: LORAZEPAM 1 MG TABLET FOR AGITATION PO PRN (13:00)
[2025-03-07] MEDS ORDERED: ZOLPIDEM TARTRATE 10 MG TABLET PO PRN (13:00)
[2025-03-07 20:00] VITALS: BP 145/65; TEMP 97.5; O2SAT 97
[2025-03-08 09:30] VITALS: BP 120/70; TEMP 97.8; O2SAT 98
[2025-03-08 16:00] VITALS: BP 109/70; TEMP 98; O2SAT 98
[2025-03-08 20:00] VITALS: BP 108/64; TEMP 97.7; O2SAT 100
[2025-03-09 16:00] VITALS: BP 152/59; TEMP 98.1; O2SAT 99
[2025-03-09 20:00] VITALS: BP 150/58; TEMP 97.7; O2SAT 100
[2025-03-10 08:00] VITALS: BP 149/41; TEMP 97.7; O2SAT 99
[2025-03-10 16:00] VITALS: BP 162/60; TEMP 98.6; O2SAT 99
[2025-03-10 19:55] VITALS: BP 121/50; TEMP 98.1; O2SAT 97
[2025-03-11 16:00] VITALS: BP 150/78; TEMP 98; O2SAT 98
[2025-03-11 20:00] VITALS: BP 140/83; TEMP 98.1; O2SAT 99
[2025-03-12 16:00] VITALS: BP 144/62; TEMP 97.8; O2SAT 98
[2025-03-12 20:47] VITALS: BP 140/58; TEMP 97.7; O2SAT 98
[2025-03-13 08:20] VITALS: BP 159/59; TEMP 98.1; O2SAT 98
[2025-03-13 16:00] VITALS: BP 159/74; TEMP 98.2; O2SAT 98
[2025-03-13 20:04] VITALS: BP 140/58; TEMP 97.8; O2SAT 98
[2025-03-14] MEDS ORDERED: ZOLPIDEM TARTRATE 10 MG TABLET PO PRN (13:00)
[2025-03-14] MEDS ORDERED: LORAZEPAM 1 MG TABLET FOR AGITATION PO PRN (13:00)
[2025-03-14 16:00] VITALS: BP 140/60; TEMP 98.1; O2SAT 100
[2025-03-14 20:00] VITALS: BP 148/74; TEMP 97.6; O2SAT 100
[2025-03-15 20:13] VITALS: BP 145/73; TEMP 98.1; O2SAT 100
[2025-03-16 16:00] VITALS: BP 159/61; TEMP 98.1; O2SAT 99
[2025-03-16 20:06] VITALS: BP 142/67; TEMP 97.3; O2SAT 100
[2025-03-17 09:25] VITALS: BP 127/57; TEMP 97.5; O2SAT 100
[2025-03-17 16:35] VITALS: BP 153/49; TEMP 97.3; O2SAT 100
[2025-03-17 20:00] VITALS: BP 135/77; TEMP 97.8; O2SAT 100
[2025-03-18 11:16] VITALS: BP 141/60; TEMP 98.2; O2SAT 100
[2025-03-18 19:58] VITALS: BP 150/42; TEMP 97.5; O2SAT 100
[2025-03-19 09:30] VITALS: BP 130/52; TEMP 98.4; O2SAT 100
[2025-03-19 20:00] VITALS: BP 144/52; TEMP 97.7; O2SAT 97
[2025-03-20 16:28] VITALS: BP 134/53; TEMP 98.1; O2SAT 100
[2025-03-20 20:00] VITALS: BP 157/46; TEMP 97.5; O2SAT 97
[2025-03-21] MEDS ORDERED: LORAZEPAM 1 MG TABLET FOR AGITATION PO PRN (13:00)
[2025-03-21] MEDS ORDERED: ZOLPIDEM TARTRATE 10 MG TABLET PO PRN (13:00)
[2025-03-21 20:00] VITALS: BP 151/61; TEMP 98.2; O2SAT 98
[2025-03-22 20:00] VITALS: BP_SYST 121; BP_DIAS 45; BP_DIAS 49; TEMP 98.1; O2SAT 98
[2025-03-22] MEDS: RISPERDONE PO SCH (21:13)
[2025-03-23 08:00] VITALS: BP 150/78; TEMP 98.4; O2SAT 97
[2025-03-23 15:50] VITALS: BP 153/57; TEMP 97.5; O2SAT 97
[2025-03-23 16:00] VITALS: BP 153/57; TEMP 97.5; O2SAT 99
[2025-03-23 20:00] VITALS: BP 131/51; TEMP 98.2; O2SAT 99
[2025-03-24 16:00] VITALS: BP 137/56; TEMP 97.7; O2SAT 98
[2025-03-24] MEDS: RISPERIDONE 1 MG PO SCH (21:01)
[2025-03-26 16:00] VITALS: BP 143/57; TEMP 98.1; O2SAT 99
[2025-03-26 20:00] VITALS: BP 114/52; TEMP 98.2; O2SAT 99
[2025-03-27 07:00] VITALS: BP 140/57; TEMP 97.3; O2SAT 96
[2025-03-27 20:00] VITALS: BP 146/56; TEMP 97.9; O2SAT 98
[2025-03-28 07:00] VITALS: BP 167/96; TEMP 97.5; O2SAT 98
== END 2025-03-28 11:45 | disposition home or self-care (01) | DRG 885 ==
LOC: MEDSG2 14:51 → MED 03-19 15:18
PROVIDERS: ADMIT Psychiatry & Neurology Psychiatry; ATTEND Psychiatry & Neurology Psychiatry
DX: F20.0 Paranoid schizophrenia (principal); Z00.6 Encounter for examination for normal comparison and control in clinical research program; F17.210 Nicotine dependence, cigarettes, uncomplicated; G47.00 Insomnia, unspecified; Z81.8 Family history of other mental and behavioral disorders
CPT/HCPCS: G0378